=== PATIENT | male | born 1940 | race Caucasian/White ===

== ENCOUNTER 2019-02-27 18:01 | Inpatient (IN) | payer OTHER, MEDICARE ==
[~2019-02-27] VITALS: Ht 182.9 cm; Wt 98.3 kg
[~2019-02-27 18:01] MED LIST: ATOR10 PO; DILT120 PO; Hair, Skin & N1 EACH PO; MAGNESIUM OXID500 MG PO; METF500 PO; NARCAN4 MG; PANT40 PO
[2019-02-27 18:57] LABS: Source, Urine Catheter
[2019-02-27 19:02] LABS: Appearance, Urine Clear (Clear); Bilirubin, Urine Neg (Neg); Blood, Urine Neg (Neg); Color, Urine Yellow (P-Yellow); Glucose Qualitative, Urine 2+ (Neg); Ketones, Urine Neg (Neg); Leukocyte Esterase, Urine Neg (Neg); Nitrite, Urine Neg (Neg); Protein, Urine 2+ (Neg); Urobilinogen, Urine NORM (Normal)
[2019-02-27 19:25] LABS: BASOPHILS ABSOLUTE AUTO 0.01 K/mm3 (0.00-0.23); BASOPHILS PERCENT AUTO 0 % (0-2); EOSINOPHILS ABSOLUTE AUTO 0.03 K/mm3 (0.00-0.68); EOSINOPHILS PERCENT AUTO 0 % (0-6); Hematocrit 45.8 % (37.0-53.0); Hemoglobin 15.2 g/dL (13.5-17.5); IMMATURE GRAN ABSOLUTE AUTO 0.02 K/mm3 (0.00-0.10); IMMATURE GRAN PERCENT AUTO 0 % (0-1); LYMPHOCYTES ABSOLUTE AUTO 0.85 K/mm3 (0.84-5.20); LYMPHOCYTES PERCENT AUTO 11 % (21-46); MONOCYTES ABSOLUTE AUTO 0.79 K/mm3 (0.16-1.47); MONOCYTES PERCENT AUTO 11 % (4-13); Mean Corpuscular HGB 33.1 pg (26.0-34.0); Mean Corpuscular HGB Conc 33.2 g/dL (31.5-36.5); Mean Corpuscular Volume 100 fL (80-100); Mean Platelet Volume 10.8 fL (9.1-12.4); NEUTROPHILS ABSOLUTE AUTO 5.77 K/mm3 (1.96-9.15); NEUTROPHILS PERCENT AUTO 77 % (41-73); Platelet Count 195 K/mm3 (150-400); RDW Coefficient Variation 13.1 % (11.7-14.2); RDW Standard Deviation 48.6 fL (35.1-46.3); Red Blood Cell Count 4.59 M/mm3 (4.30-5.90); White Blood Cell Count 7.47 K/mm3 (4.00-11.30)
[2019-02-27 19:29] LABS: Bacteria Rare /hpf; Red Blood Cells, Urine 0-2 /hpf (0-2); Squamous Epithelial Cells Rare /hpf (Few); White Blood Cells, Urine 0-2 /hpf (0-5)
[2019-02-27 19:34] LABS: International Normalized Ratio 1.08; Prothrombin Time Results 11.4 Sec (9.7-11.5)
[2019-02-27 19:35] LABS: Alanine Aminotransfer (ALT/SGP 74 U/L (12-78); Albumin, Blood 3.5 g/dL (3.4-5.0); Albumin/Globulin Ratio 0.9 (0.8-1.8); Alk Phos 145 U/L (50-136); Anion Gap 8 mmol/L (6-16); Aspartate Aminotrans (AST/SGOT 137 U/L (12-37); Bilirubin, Total 1.8 mg/dL (0.1-1.0); Blood Urea Nitrogen 10 mg/dL (8-24); Bun/Creatinine Ratio 11.3 (12.0-20.0); CO2, Blood 25 mmol/L (21-32); Calcium, Blood 8.6 mg/dL (8.5-10.1); Chloride, Blood 103 mmol/L (98-108); Creatinine, Blood 0.88 mg/dL (0.60-1.20); Globulin, Blood 3.8 g/dL (2.2-4.0); Glomerular Filtration Rate >60 (60-); Glucose, Blood 197 mg/dL (70-99); Potassium, Blood 3.8 mmol/L (3.5-5.5); Sodium, Blood 136 mmol/L (136-145); Total Protein, Blood 7.3 g/dL (6.4-8.2)
[2019-02-27] MEDS ORDERED: FOLI1 PO (20:02)
[2019-02-27] MEDS ORDERED: B-1100 MG PO (20:02)
[2019-02-27 23:18] LABS: Influenza A Negative (NEGATIVE); Influenza B Negative (NEGATIVE)
[2019-02-28 02:23] LABS: Alanine Aminotransfer (ALT/SGP 61 U/L (12-78); Albumin/Globulin Ratio 0.9 (0.8-1.8); Alk Phos 123 U/L (50-136); Anion Gap 9 mmol/L (6-16); Aspartate Aminotrans (AST/SGOT 68 U/L (12-37); Bilirubin, Total 1.8 mg/dL (0.1-1.0); Blood Urea Nitrogen 9 mg/dL (8-24); Bun/Creatinine Ratio 9.4 (12.0-20.0); CO2, Blood 24 mmol/L (21-32); Calcium, Blood 8.1 mg/dL (8.5-10.1); Chloride, Blood 104 mmol/L (98-108); Creatinine, Blood 0.96 mg/dL (0.60-1.20); Globulin, Blood 3.5 g/dL (2.2-4.0); Glomerular Filtration Rate >60 (60-); Glucose, Blood 250 mg/dL (70-99); Potassium, Blood 3.9 mmol/L (3.5-5.5); Sodium, Blood 137 mmol/L (136-145); Total Protein, Blood 6.5 g/dL (6.4-8.2)
[2019-02-28 02:36] LABS: BASOPHILS ABSOLUTE AUTO 0.03 K/mm3 (0.00-0.23); BASOPHILS PERCENT AUTO 0 % (0-2); EOSINOPHILS PERCENT AUTO 0 % (0-6); Hematocrit 42.1 % (37.0-53.0); Hemoglobin 14.2 g/dL (13.5-17.5); IMMATURE GRAN ABSOLUTE AUTO 0.08 K/mm3 (0.00-0.10); IMMATURE GRAN PERCENT AUTO 1 % (0-1); LYMPHOCYTES ABSOLUTE AUTO 0.77 K/mm3 (0.84-5.20); LYMPHOCYTES PERCENT AUTO 7 % (21-46); MONOCYTES ABSOLUTE AUTO 1.11 K/mm3 (0.16-1.47); MONOCYTES PERCENT AUTO 11 % (4-13); Mean Corpuscular HGB 33.6 pg (26.0-34.0); Mean Corpuscular HGB Conc 33.7 g/dL (31.5-36.5); Mean Corpuscular Volume 100 fL (80-100); Mean Platelet Volume 10.8 fL (9.1-12.4); NEUTROPHILS ABSOLUTE AUTO 8.46 K/mm3 (1.96-9.15); NEUTROPHILS PERCENT AUTO 81 % (41-73); Platelet Count 165 K/mm3 (150-400); RDW Coefficient Variation 13.2 % (11.7-14.2); RDW Standard Deviation 48.4 fL (35.1-46.3); Red Blood Cell Count 4.23 M/mm3 (4.30-5.90); White Blood Cell Count 10.45 K/mm3 (4.00-11.30)
--- NOTE | 2019-02-28 05:15 | NUR ---
ED ADMIT @ [address] NAJERA FOR ELEVATED LFT'S. AOX4. BED ALARM, PT CALLED APPROPRIATELY. LS CLEAR, DENIES SOB. NO C/O NAUSEA OR PAIN. NO SKIN ISSUES. TELE READS SINUS TACH AFIB 120-130. PT WAS GIVEN CARDIZEM AND HR HAS BEEN TRENDING DOWN, LAST @ 0445 WAS 61. HIGHEST TEMP WAS 101.2, TYLENOL GIVEN @ 0240 AND TEMP BACK TO 98.0. PT RECEIVED 2L LR BOLUS IN ED, RECEIVED ANOTHER 1L BOLUS OF NS AFTER SECOND LACTIC CAME BACK HIGHER AT 3.2. NS NOW RUNNING @ 200ML/HR. BP CONTINUES TO DECREASE. 120/71, 100/57, 94/61, AND LAST @ 0445 WAS 90/56. DR BACON IS AWARE OF ALL OF THIS AND HAS BEEN NOTIFIED SEVERAL TIMES OF LABS AND VS. DR BACON WANTS TO KEEP FLUIDS GOING AT 200ML/HR AT THIS TIME AND WAIT FOR NEXT LACTIC DRAW @ 0600. PT HAD CT SCAN DONE AROUND 0430. ASYMPTOMATIC, LS REMAIN CLEAR, NO COMPLAINTS FROM PT. HX OF ETOH, AFIB, DM2 AND HTN. LATEST LACTIC WAS 3.3, WAITING FOR 6AM RESULT. BLOOD GLUCOSE CHECKS AC AND HS - 201. PT CONTROLS DIABETES W/ORAL MEDS. METFORMIN ON HOLD FOR NOW D/T LACTIC. PT STAYED THE NIGHT IN ROOM. FROM ID. UNSURE OF PLAN AT THIS TIME. WAITING FOR MORE RESULTS.
--- NOTE | 2019-02-28 06:30 | NUR ---
DR BACON NOTIFIED ABOUT PT LATEST LACTIC ACID OF 3.3. HE SAID TO KEEP FLUIDS RUNNING NS @ 200ML/HR. QUESTIONED IF HE WANTED SOMETHING TO PROTECT THE KIDNEYS SINCE PT RECEIVED CONTRAST FOR CT SCAN LIKE MUCOMYST AND HE SAID NO, TO JUST KEEP FLUIDS GOING.
--- NOTE | 2019-02-28 16:46 | NUR ---
SUMMARY PT STATE FEELING SOMEWHAT IMPROVED THIS AM FOLLOWING ER TX & FLUID BOLUSES DURING THE NIGHT. STATE SOMEWHAT FATIGUED. NO FEVER TODAY. LAST LACTIC ACID THIS AM 3.3, DR ORTIZ ORDER LR BOLUS 1L TODAY & CHANGE IVF TO LR @ 75 ML/HR. LAB REPORT +BLOOD CX, ORDER IVPB AZITHROMYCIN. LFT ELEVATED, DR ORDER MRI ABD WHICH WILL BE DONE THIS EVENING. PT IS A/O X4, PLEASANT/COOPERATIVE, SBA TO BR, +BM TODAY. VSS. PT S/O @ BEDSIDE, SUPPORTIVE, WILL STAY NITE W PT.
--- NOTE | 2019-03-01 03:27 | NUR ---
SHIFT SUMMARY AOX4. PT VERY DROWSY AFTER RECEIVING ATIVAN BEFORE MRI. BED ALARM. LS CLEAR, DENIES SOB. NO C/O NAUSEA OR PAIN. NO SKIN PROBLEMS. TELE READS AFIB IN THE 90'S. L WRIST IV IS SL. L AC HAS LR @ 75. AC AND HS - 166. METFORMIN ON HOLD. UA DIRTY. BLOOD CULTURES POSITIVE. UNSURE OF DC PLAN, FROM [facility].
[2019-03-01 04:28] LABS: BASOPHILS ABSOLUTE AUTO 0.03 K/mm3 (0.00-0.23); BASOPHILS PERCENT AUTO 0 % (0-2); EOSINOPHILS ABSOLUTE AUTO 0.08 K/mm3 (0.00-0.68); EOSINOPHILS PERCENT AUTO 1 % (0-6); Hematocrit 44.6 % (37.0-53.0); Hemoglobin 14.9 g/dL (13.5-17.5); IMMATURE GRAN ABSOLUTE AUTO 0.03 K/mm3 (0.00-0.10); IMMATURE GRAN PERCENT AUTO 0 % (0-1); LYMPHOCYTES ABSOLUTE AUTO 1.45 K/mm3 (0.84-5.20); LYMPHOCYTES PERCENT AUTO 18 % (21-46); MONOCYTES ABSOLUTE AUTO 0.84 K/mm3 (0.16-1.47); MONOCYTES PERCENT AUTO 10 % (4-13); Mean Corpuscular HGB 33.3 pg (26.0-34.0); Mean Corpuscular HGB Conc 33.4 g/dL (31.5-36.5); Mean Corpuscular Volume 100 fL (80-100); Mean Platelet Volume 10.2 fL (9.1-12.4); NEUTROPHILS ABSOLUTE AUTO 5.73 K/mm3 (1.96-9.15); NEUTROPHILS PERCENT AUTO 70 % (41-73); Platelet Count 180 K/mm3 (150-400); RDW Coefficient Variation 13.3 % (11.7-14.2); RDW Standard Deviation 49.5 fL (35.1-46.3); Red Blood Cell Count 4.47 M/mm3 (4.30-5.90); White Blood Cell Count 8.16 K/mm3 (4.00-11.30)
[2019-03-01 04:45] LABS: Alanine Aminotransfer (ALT/SGP 44 U/L (12-78); Albumin, Blood 3.1 g/dL (3.4-5.0); Albumin/Globulin Ratio 0.8 (0.8-1.8); Alk Phos 104 U/L (50-136); Anion Gap 8 mmol/L (6-16); Aspartate Aminotrans (AST/SGOT 33 U/L (12-37); Bilirubin, Total 2.2 mg/dL (0.1-1.0); Blood Urea Nitrogen 12 mg/dL (8-24); Bun/Creatinine Ratio 12.9 (12.0-20.0); CO2, Blood 21 mmol/L (21-32); Calcium, Blood 8.4 mg/dL (8.5-10.1); Chloride, Blood 108 mmol/L (98-108); Creatinine, Blood 0.93 mg/dL (0.60-1.20); Globulin, Blood 3.8 g/dL (2.2-4.0); Glomerular Filtration Rate >60 (60-); Glucose, Blood 143 mg/dL (70-99); Potassium, Blood 3.9 mmol/L (3.5-5.5); Sodium, Blood 137 mmol/L (136-145); Total Protein, Blood 6.9 g/dL (6.4-8.2)
[2019-03-01] MEDS ORDERED: METO25ER PO (14:54)
[2019-03-01] MEDS ORDERED: AMOCLA500 PO (14:55)
--- NOTE | 2019-03-01 16:16 | NUR ---
1520 PT DISCHARGED VIA PERSONAL VEHICLE ACCOMPANIED AND DRIVEN BY SIGNIFICANT OTHER. PT REFUSED W/C ESCORT AND REQUESTED TO WALK WITH FRIEND. IV'S REMOVED. NEW RX FAXED TO [facility] PER PT REQUEST. D/C PAPERWORK REVIEWED WITH PT AND COPY PROVIDED. NO NEW CHANGES OR CONCERNS.
== END 2019-03-01 15:21 | disposition home or self-care (01) | DRG 872 ==
LOC: ER 18:01 → MEDS 18:02 → ENPENDDIS 03-01 13:18 → MEDS 03-01 15:21
PROVIDERS: Emergency Medicine; Internal Medicine; ADMIT Internal Medicine
DX: A41.50 Gram-negative sepsis, unspecified (principal); E87.2 Acidosis; I48.20 Chronic atrial fibrillation, unspecified; Z87.891 Personal history of nicotine dependence; Z79.84 Long term (current) use of oral hypoglycemic drugs; I10 Essential (primary) hypertension; E66.01 Morbid (severe) obesity due to excess calories; K70.30 Alcoholic cirrhosis of liver without ascites; Z68.28 Body mass index [BMI] 28.0-28.9, adult; E11.9 Type 2 diabetes mellitus without complications; K83.8 Other specified diseases of biliary tract
CPT/HCPCS: 36415; 71046; 74177; 74181; 80053; 81001; 82947; 83036; 83605; 84145; 84443; 85025; 85610; 85730; 87040; 87077; 87086; 87186; 87804; 93005; 93010; 96361; 96365; 96375; 99285-25; A9270; G0378; J0456; J0696; J1815; J2060; J7030; J7050; J7120; Q9967

== ENCOUNTER 2019-08-05 17:34 | Emergency (ER) | payer OTHER ==
[~2019-08-05] VITALS: Ht 182.9 cm; Wt 93.0 kg
[~2019-08-05 17:34] MED LIST changes: +AMOCLA500 PO; +B-1100 MG PO; +FOLI1 PO; +METO25ER PO
[2019-08-05 18:05] LABS: BASOPHILS ABSOLUTE AUTO 0.04 K/mm3 (0.00-0.23); BASOPHILS PERCENT AUTO 1 % (0-2); EOSINOPHILS ABSOLUTE AUTO 0.03 K/mm3 (0.00-0.68); EOSINOPHILS PERCENT AUTO 1 % (0-6); Hematocrit 46.4 % (37.0-53.0); Hemoglobin 16.2 g/dL (13.5-17.5); IMMATURE GRAN ABSOLUTE AUTO 0.03 K/mm3 (0.00-0.10); IMMATURE GRAN PERCENT AUTO 1 % (0-1); LYMPHOCYTES ABSOLUTE AUTO 4.07 K/mm3 (0.84-5.20); LYMPHOCYTES PERCENT AUTO 68 % (21-46); MONOCYTES ABSOLUTE AUTO 0.48 K/mm3 (0.16-1.47); MONOCYTES PERCENT AUTO 8 % (4-13); Mean Corpuscular HGB 31.8 pg (26.0-34.0); Mean Corpuscular HGB Conc 34.9 g/dL (31.5-36.5); Mean Corpuscular Volume 91 fL (80-100); NEUTROPHILS ABSOLUTE AUTO 1.38 K/mm3 (1.96-9.15); NEUTROPHILS PERCENT AUTO 23 % (41-73); Platelet Count 164 K/mm3 (150-400); RDW Coefficient Variation 15.7 % (11.7-14.2); RDW Standard Deviation 52.7 fL (35.1-46.3); Red Blood Cell Count 5.09 M/mm3 (4.30-5.90); White Blood Cell Count 6.03 K/mm3 (4.00-11.30)
[2019-08-05 18:26] LABS: Magnesium, Blood 1.2 mg/dL (1.6-2.4); Troponin I <0.015 ng/mL (0.000-0.040)
[2019-08-05 18:27] LABS: Alanine Aminotransfer (ALT/SGP 20 U/L (12-78); Albumin, Blood 3.2 g/dL (3.4-5.0); Albumin/Globulin Ratio 0.8 (0.8-1.8); Alk Phos 96 U/L (50-136); Anion Gap 13 mmol/L (6-16); Aspartate Aminotrans (AST/SGOT 51 U/L (12-37); Bilirubin, Total 1.6 mg/dL (0.1-1.0); Blood Urea Nitrogen 9 mg/dL (8-24); Bun/Creatinine Ratio 10.8 (12.0-20.0); CO2, Blood 26 mmol/L (21-32); Calcium, Blood 7.7 mg/dL (8.5-10.1); Chloride, Blood 101 mmol/L (98-108); Creatinine, Blood 0.83 mg/dL (0.60-1.20); Globulin, Blood 3.9 g/dL (2.2-4.0); Glomerular Filtration Rate >60 (60-); Glucose, Blood 177 mg/dL (70-99); Sodium, Blood 140 mmol/L (136-145); Total Protein, Blood 7.1 g/dL (6.4-8.2)
== END 2019-08-05 19:45 | disposition home or self-care (01) ==
LOC: ER 17:34
PROVIDERS: Emergency Medicine
DX: R07.89 Other chest pain (principal); I48.20 Chronic atrial fibrillation, unspecified; E87.6 Hypokalemia; E83.42 Hypomagnesemia; I10 Essential (primary) hypertension; E11.9 Type 2 diabetes mellitus without complications; F32.9 Major depressive disorder, single episode, unspecified; Z88.2 Allergy status to sulfonamides; Z79.899 Other long term (current) drug therapy; Z79.84 Long term (current) use of oral hypoglycemic drugs
CPT/HCPCS: 71045; 80053; 83735; 84484; 85025; 93005; 93010; 93971; 99285-25; A9270

== ENCOUNTER 2019-09-12 21:36 | Inpatient (IN) | payer OTHER ==
[~2019-09-12] VITALS: Ht 185.4 cm; Wt 93.4 kg
[2019-09-12 22:19] LABS: BASOPHILS ABSOLUTE AUTO 0.04 K/mm3 (0.00-0.23); BASOPHILS PERCENT AUTO 1 % (0-2); EOSINOPHILS ABSOLUTE AUTO 0.04 K/mm3 (0.00-0.68); EOSINOPHILS PERCENT AUTO 1 % (0-6); Hematocrit 38.8 % (37.0-53.0); IMMATURE GRAN ABSOLUTE AUTO 0.02 K/mm3 (0.00-0.10); IMMATURE GRAN PERCENT AUTO 0 % (0-1); LYMPHOCYTES ABSOLUTE AUTO 3.73 K/mm3 (0.84-5.20); LYMPHOCYTES PERCENT AUTO 64 % (21-46); MONOCYTES PERCENT AUTO 9 % (4-13); Mean Corpuscular HGB Conc 36.1 g/dL (31.5-36.5); Mean Corpuscular Volume 89 fL (80-100); Mean Platelet Volume 10.3 fL (9.1-12.4); NEUTROPHILS ABSOLUTE AUTO 1.49 K/mm3 (1.96-9.15); NEUTROPHILS PERCENT AUTO 26 % (41-73); Platelet Count 195 K/mm3 (150-400); RDW Coefficient Variation 14.2 % (11.7-14.2); RDW Standard Deviation 46.1 fL (35.1-46.3); Red Blood Cell Count 4.38 M/mm3 (4.30-5.90); White Blood Cell Count 5.82 K/mm3 (4.00-11.30)
[2019-09-12 22:40] LABS: Alanine Aminotransfer (ALT/SGP 29 U/L (12-78); Albumin, Blood 2.9 g/dL (3.4-5.0); Albumin/Globulin Ratio 0.7 (0.8-1.8); Alk Phos 151 U/L (50-136); Anion Gap 13 mmol/L (6-16); Aspartate Aminotrans (AST/SGOT 47 U/L (12-37); Bilirubin, Total 2.3 mg/dL (0.1-1.0); Blood Urea Nitrogen 14 mg/dL (8-24); Bun/Creatinine Ratio 16.1 (12.0-20.0); CO2, Blood 30 mmol/L (21-32); Calcium, Blood 6.8 mg/dL (8.5-10.1); Chloride, Blood 92 mmol/L (98-108); Creatinine, Blood 0.87 mg/dL (0.60-1.20); Glomerular Filtration Rate >60 (60-); Glucose, Blood 152 mg/dL (70-99); Potassium, Blood 2.2 mmol/L (3.5-5.5); Sodium, Blood 135 mmol/L (136-145); Total Protein, Blood 6.9 g/dL (6.4-8.2)
[2019-09-12 22:43] LABS: Troponin I <0.015 ng/mL (0.000-0.040)
--- NOTE | 2019-09-13 01:20 | NUR ---
PT ARRIVES TO ICU 16 PCU OBS PT FROM ER FOR DX OF HYPOKALEMIA. HE IS ALERT AND ORIENTED AT THIS TIME, CIWA IS 0. HE STANDS TO TRANSFER WITH MINIMAL ASSIST AND STEADY GAIT, DENIES DIZZINESS/VERTIGO WITH TRANSFER. PT IS SPEAKING IN FULL SENTENCES WITHOUT VISIBLE INCREASED WORK OF BREATHING, HE DENIES SOB/DYSPNEA, LUNGS ARE CLEAR THROUGHOUT, SATS ARE UPPER 90S ON ROOM AIR, RATE HIGH TEENS. HR IRREG, AFIB NOTED ON MONITOR, RATE CONTROLLED AT THIS TIME, PT DENIES CP/PRESSURE, PRESSURES ARE IMPROVING PER PAIN MANAGEMENT NURSE PRACTITIONER, SKIN IS PWD WITH FULL PULSES X 4 EXTREMITIES AND BRISK CAP REFILL, NO EDEMA IS NOTED. NORMOACTIVE BOWEL TONES X 4, ABD SOFT, NO TENDERNESS REPORTED WITH PALPATION, PT DENIES N/V. HE STATES THAT HE LIVES AT [facility]. HE REPORTS THAT HE DRINKS VODKA "ONCE IN A WHILE" AND THAT HIS LAST DRINK WAS 2 DAYS AGO. HE DENIES HEADACHE, DENIES NUMBNESS/TINGLING, DENIES ANXIETY. NS WITH 40 MEQ OF POTASSIUM INFUSING AT 250 ML/HR PER ORDERS TO LEFT HAND IV, SITE WNL, DRESSING CDI. ADDITIONAL IV ACCESS NOTED TO RIGHT HAND AND RIGHT AC, BOTH WNL WITH CDI DRESSINGS. CALL LIGHT PROVIDED, USE EXPLAINED AND ENCOURAGED, FALL RISK EXPLAINED, BED ALARM ARMED AND PT INSTRUCTED TO NOT GET UP OOB INDEPENDENTLY. PLAN OF CARE FOR THIS SHIFT EXPLAINED, UNDERSTANDING VERB.
[2019-09-13 02:54] LABS: Source, Urine Clean Catch
[2019-09-13 02:59] LABS: Appearance, Urine Clear (Clear); Bilirubin, Urine Neg (Neg); Blood, Urine Neg (Neg); Color, Urine Yellow (P-Yellow); Glucose Qualitative, Urine Neg (Neg); Ketones, Urine Neg (Neg); Leukocyte Esterase, Urine Neg (Neg); Nitrite, Urine Neg (Neg); Protein, Urine Neg (Neg); Specific Gravity, Urine 1.005 (1.003-1.022); Urobilinogen, Urine 1+ (Normal)
[2019-09-13 03:52] LABS: BASOPHILS ABSOLUTE AUTO 0.04 K/mm3 (0.00-0.23); BASOPHILS PERCENT AUTO 1 % (0-2); EOSINOPHILS ABSOLUTE AUTO 0.04 K/mm3 (0.00-0.68); EOSINOPHILS PERCENT AUTO 1 % (0-6); Hematocrit 36.1 % (37.0-53.0); Hemoglobin 13.1 g/dL (13.5-17.5); IMMATURE GRAN ABSOLUTE AUTO 0.04 K/mm3 (0.00-0.10); IMMATURE GRAN PERCENT AUTO 1 % (0-1); LYMPHOCYTES ABSOLUTE AUTO 2.48 K/mm3 (0.84-5.20); LYMPHOCYTES PERCENT AUTO 62 % (21-46); MONOCYTES ABSOLUTE AUTO 0.39 K/mm3 (0.16-1.47); MONOCYTES PERCENT AUTO 10 % (4-13); Mean Corpuscular HGB 32.8 pg (26.0-34.0); Mean Corpuscular HGB Conc 36.3 g/dL (31.5-36.5); Mean Corpuscular Volume 90 fL (80-100); Mean Platelet Volume 9.9 fL (9.1-12.4); NEUTROPHILS ABSOLUTE AUTO 1.04 K/mm3 (1.96-9.15); NEUTROPHILS PERCENT AUTO 26 % (41-73); Platelet Count 179 K/mm3 (150-400); RDW Coefficient Variation 14.4 % (11.7-14.2); RDW Standard Deviation 47.8 fL (35.1-46.3); White Blood Cell Count 4.03 K/mm3 (4.00-11.30)
[2019-09-13 04:05] LABS: International Normalized Ratio 1.12; Prothrombin Time Results 11.9 Sec (9.7-11.5)
[2019-09-13 04:17] LABS: Alanine Aminotransfer (ALT/SGP 24 U/L (12-78); Albumin, Blood 2.7 g/dL (3.4-5.0); Albumin/Globulin Ratio 0.8 (0.8-1.8); Alk Phos 133 U/L (50-136); Anion Gap 11 mmol/L (6-16); Aspartate Aminotrans (AST/SGOT 44 U/L (12-37); Bilirubin, Total 2.2 mg/dL (0.1-1.0); Blood Urea Nitrogen 12 mg/dL (8-24); Bun/Creatinine Ratio 13.8 (12.0-20.0); CO2, Blood 31 mmol/L (21-32); Calcium, Blood 6.8 mg/dL (8.5-10.1); Chloride, Blood 99 mmol/L (98-108); Creatinine, Blood 0.87 mg/dL (0.60-1.20); Globulin, Blood 3.4 g/dL (2.2-4.0); Glomerular Filtration Rate >60 (60-); Glucose, Blood 128 mg/dL (70-99); Potassium, Blood 2.1 mmol/L (3.5-5.5); Sodium, Blood 141 mmol/L (136-145); Total Protein, Blood 6.1 g/dL (6.4-8.2)
--- NOTE | 2019-09-13 06:01 | NUR ---
PT RESTS QUIETLY FOLLOWING ADMIT FROM ER. PT HAS DENIED PAIN, N/V, SOB/DYSPNEA AND CP/PRESSURE SINCE ADMIT, STATES THAT HE IS JUST TIRED AND CAN'T REMEMBER THE LAST TIME HE STAYED UP THIS LATE. HE DOES REMAIN IN AFIB WITH CONTROLLED RATE, OCCASIONAL PVCS ARE NOTED, BLOOD PRESSURES HAVE BEEN STABLE, NO EDEMA IS NOTED, AND PULSES ARE FULL, SKIN IS PWD WITH BRISK CAP REFILL. LUNGS ARE CLEAR THROUGHOUT WITH DIM BASES, NO VISIBLE INCREASED WORK OF BREATHING, HE HAS BEEN SPEAKING IN FULL SENTENCES, SATS MAINTAIN MID TO UPPER 90S ON ROOM AIR. NORMOACTIVE BOWEL TONES CONT, ABD SOFT, NONTENDER TO PALP. VOIDS CLEAR DARK YELLOW URINE WITHOUT DIFFICULTY AND UA WAS SENT PER ORDERS. NORMAL SALINE WITH POTASSIUM CHLORIDE 40 MEQ/LITER CONTINUES INFUSING AT 250 ML/HR, PT'S POTASSIUM REMAINS CRITICALLY LOW HOWEVER HAS IMPROVED TO 2.4 OF THIS AM, WILL ADMINISTER PO POTASSIUM PER ORDERS AND RECHECK LEVEL 4 HOURS AFTER ADMINISTRATION.
--- NOTE | 2019-09-13 09:22 | NUR ---
PT IS RESTING IN BED W/O DISTRESS. DENIES PAIN OR SOB. REMAINS AFIB. TAKING PO WELL. CIWA-2 CURRENTLY AND PT IS A/O WITH ONLY SL NOTED TREMORS. PT ALSO DENIES ANY HX OF D.T. ISSUES.
[2019-09-13 10:45] LABS: International Normalized Ratio 1.07; Prothrombin Time Results 11.4 Sec (9.7-11.5)
[2019-09-13 10:54] LABS: Magnesium, Blood 1.3 mg/dL (1.6-2.4); Phosphorus, Blood 2.4 mg/dL (2.5-4.9); Potassium, Blood 2.9 mmol/L (3.5-5.5)
[2019-09-13 16:38] LABS: Magnesium, Blood 1.9 mg/dL (1.6-2.4); Potassium, Blood 3.8 mmol/L (3.5-5.5)
--- NOTE | 2019-09-13 17:30 | NUR ---
PT CIWA REMAINS LOW NOTED AND PT HAS RESTED WELL THIS SHIFT. HR REMAINS SOMEWHAT ELEVATED RUNNING 100 TO 115 OR 120 AT TIMES BUT OVERALL HR SLOWING WITH MEDS. PT HAS BEEN UP AND FEEDING SELF ALL SHIFT. I/O NOTED. PT HAS BEEN VOIDING AND ONE BM THIS SHIFT. PT HAS BEEN RESTING AND WATCHING TV MOST OF THIS SHIFT.
--- NOTE | 2019-09-13 19:25 | NUR ---
ASSUMED CARE OF PT, BEDSIDE REPORT RECEIVED. PT RESTING QUIETLY RECLINING IN BED AND DENIES NEEDS AT THIS TIME. DENIES CP/PRESSURE, DENIES SOB/DYSPNEA, DENIES NUMBNESS/TINGLING, DENIES N/V, DENIES PAIN OVERALL. HE IS SPEAKING IN FULL SENTENCES WITHOUT VISIBLE INCREASED WORK OF BREATHING, LUNGS ARE CLEAR THROUGHOUT AND SATS MAINTAINING HIGH 90S ON ROOM AIR. AFIB CONTINUES, RATE 100-110S AT THIS TIME, WILL ADMIN HS TOPROL PER ORDERS AND MONITOR, PRESSURE IS NOTED HYPERTENSIVE, SKIN PWD, BRISK CAP REFILL, NO EDEMA IS NOTED. NORMOACTIVE BOWEL TONES X 4, ABD SOFT, NO TENDERNESS WITH PALPATION. VOIDS CLEAR DARK YELLOW URINE IN URINAL WITHOUT DIFFICULTY. PT REPORTS THAT ALTHOUGH HE DOES STILL FEEL WEAK COMPARED TO BASELINE, THAT HIS STRENGTH HAS IMPROVED FROM ARRIVAL AT ER.
[2019-09-14 03:43] LABS: Anion Gap 5 mmol/L (6-16); Blood Urea Nitrogen 14 mg/dL (8-24); Bun/Creatinine Ratio 18.7 (12.0-20.0); CO2, Blood 31 mmol/L (21-32); Calcium, Blood 6.7 mg/dL (8.5-10.1); Chloride, Blood 102 mmol/L (98-108); Creatinine, Blood 0.75 mg/dL (0.60-1.20); Glomerular Filtration Rate >60 (60-); Glucose, Blood 175 mg/dL (70-99); Magnesium, Blood 1.6 mg/dL (1.6-2.4); Sodium, Blood 138 mmol/L (136-145)
--- NOTE | 2019-09-14 06:25 | NUR ---
PT RESTS QUIETLY THROUGHOUT SHIFT, TURNS AND REPOSITIONS SELF WELL IN BED, UP TO STAND FOR VOIDS IN URINAL WITH SBA AND TOLERATES WELL, DOES REPORT THAT STRENGTH HAS IMPROVED ALTHOUGH HE REMAINS WEAK COMPARED TO BASELINE. LUNGS REMAIN CLEAR THROUGHOUT, PT HAS DENIED SOB/DYSPNEA THROUGHOUT SHIFT ALTHOUGH DID APPEAR TO HAVE SLIGHT DYSPNEA WITH EXERTION AT MIDNOC ASSESSMENT, THIS WAS NO LONGER APPARENT AT 0400. AFIB CONTINUES, SCHEDULED TOPROL ADMIN AT HS PER ORDERS AND PRN LOPRESSOR ADMIN PO AT MIDNOC FOR HEART RATE CONSISTENTLY 120S, RATE IS IMPROVED THIS AM TO 80-90S AT THIS TIME, PRESSURES HAVE IMPROVED.
--- NOTE | 2019-09-14 09:18 | NUR ---
PT IS A/O AND 1-2 ON CIWA. PT IS CALM AND ONLY VERY SLIGHT TREMORS FOR SYMPTOMS. PT IS EATING WELL, UP TO VOID AND HAS HAD NO N/V. PT HAS WORKED WITH PT AND HIS BALANCE IS IMPORVED TODAY. IV SITES ARE ALL S.L. VS AND HR ARE NOTED AND PT HR CONTROL IS IMPORVED TODAY FROM YESTERDAY.
--- NOTE | 2019-09-14 12:05 | NUR ---
PT DISCHARGE INSTRUCTIONS GIVEN AND PT VERBALIZED UNDERSTANDING. NO RX CALLS NEEDED PT HAS MEDS AVALIBLE AT HOME. IV'S REMOVED X3 INTACT, PT HR 90-105. PT TAXI ARRANGED TO [facility] DUE TO NO OTHER RIDE OR CONTACT BEING AVALIBLE. PT D/C TO FRONT CURB TO NANCY TAXI VIA W/C WITH TOOL AND DIE ASSEMBLER.
== END 2019-09-14 12:10 | disposition home or self-care (01) | DRG 641 ==
LOC: ER 21:36 → ICUW 21:37
PROVIDERS: Emergency Medicine; Internal Medicine; Nurse Practitioner Acute Care; ADMIT Family Medicine
DX: E87.6 Hypokalemia (principal); Z79.84 Long term (current) use of oral hypoglycemic drugs; E11.9 Type 2 diabetes mellitus without complications; Z87.891 Personal history of nicotine dependence; E83.51 Hypocalcemia; E83.42 Hypomagnesemia; K70.30 Alcoholic cirrhosis of liver without ascites; I48.91 Unspecified atrial fibrillation; Y90.8 Blood alcohol level of 240 mg/100 ml or more; F10.120 Alcohol abuse with intoxication, uncomplicated
CPT/HCPCS: 36415; 70450; 71045; 80048; 80053; 81003; 82140; 82306; 82330; 82947; 83735; 84100; 84132; 84443; 84484; 85025; 85610; 93005; 93010; 96365; 96366; 96375; 96376; 97110; 97112; 97162; 97165; 97530; 99285-25; A9270; A9270-GY; C9113; G0378; G0480; J0610; J3475; J3480; J7030

== ENCOUNTER 2020-08-27 10:22 | Observation (INO) | payer OTHER ==
[~2020-08-27] VITALS: Ht 177.8 cm; Wt 74.8 kg
[~2020-08-27 10:22] MED LIST changes: +K-Dur 20 meq T20 MEQ PO; +MAGNESIUM OXID400 M1 PO
[2020-08-27 11:11] LABS: BASOPHILS ABSOLUTE AUTO 0.04 K/mm3 (0.00-0.23); BASOPHILS PERCENT AUTO 1 % (0-2); EOSINOPHILS ABSOLUTE AUTO 0.05 K/mm3 (0.00-0.68); EOSINOPHILS PERCENT AUTO 1 % (0-6); Hematocrit 43.6 % (37.0-53.0); IMMATURE GRAN ABSOLUTE AUTO 0.03 K/mm3 (0.00-0.10); IMMATURE GRAN PERCENT AUTO 1 % (0-1); LYMPHOCYTES ABSOLUTE AUTO 2.83 K/mm3 (0.84-5.20); LYMPHOCYTES PERCENT AUTO 45 % (21-46); MONOCYTES ABSOLUTE AUTO 0.59 K/mm3 (0.16-1.47); MONOCYTES PERCENT AUTO 9 % (4-13); Mean Corpuscular HGB 34.1 pg (26.0-34.0); Mean Corpuscular HGB Conc 36.7 g/dL (31.5-36.5); Mean Corpuscular Volume 93 fL (80-100); NEUTROPHILS ABSOLUTE AUTO 2.76 K/mm3 (1.96-9.15); NEUTROPHILS PERCENT AUTO 44 % (41-73); Platelet Count 172 K/mm3 (150-400); RDW Coefficient Variation 13.2 % (11.7-14.2); RDW Standard Deviation 44.8 fL (35.1-46.3); Red Blood Cell Count 4.69 M/mm3 (4.30-5.90)
[2020-08-27 11:36] LABS: Alanine Aminotransfer (ALT/SGP 26 U/L (12-78); Albumin, Blood 3.2 g/dL (3.4-5.0); Albumin/Globulin Ratio 0.8 (0.8-1.8); Alk Phos 100 U/L (50-136); Anion Gap 11 mmol/L (6-16); Aspartate Aminotrans (AST/SGOT 41 U/L (12-37); Bilirubin, Total 2.3 mg/dL (0.1-1.0); Blood Urea Nitrogen 6 mg/dL (8-24); Bun/Creatinine Ratio 6.9 (12.0-20.0); CO2, Blood 29 mmol/L (21-32); Calcium, Blood 7.9 mg/dL (8.5-10.1); Chloride, Blood 88 mmol/L (98-108); Creatinine, Blood 0.87 mg/dL (0.60-1.20); Globulin, Blood 3.9 g/dL (2.2-4.0); Glomerular Filtration Rate >60 (60-); Glucose, Blood 218 mg/dL (70-99); Potassium, Blood 2.9 mmol/L (3.5-5.5); Sodium, Blood 128 mmol/L (136-145); Total Protein, Blood 7.1 g/dL (6.4-8.2)
[2020-08-27 11:45] LABS: Ethanol (Alcohol), Blood, Med 238 mg/dL; Thyroxine (T4) 10.9 ug/dL (4.5-12.1)
[2020-08-27 11:53] LABS: Acetaminophen, Random <2.0 ug/mL (10.0-30.0); Salicylate <1.7 mg/dL (2.8-20.0)
[2020-08-27 13:05] LABS: SARS-Cov-2 (COVID-19) PCR, MMC NEGATIVE (NEGATIVE)
[2020-08-27 14:53] LABS: Source, Urine Clean Catch
[2020-08-27 15:19] LABS: Appearance, Urine Clear (Clear); Bilirubin, Urine Neg (Neg); Blood, Urine Neg (Neg); Color, Urine Amber (P-Yellow); Glucose Qualitative, Urine 2+ (Neg); Ketones, Urine Neg (Neg); Leukocyte Esterase, Urine Neg (Neg); Nitrite, Urine Neg (Neg); Protein, Urine Neg (Neg); Specific Gravity, Urine 1.005 (1.003-1.022); Urobilinogen, Urine 2+ (Normal)
[2020-08-27 15:35] LABS: U Amphetamine Screen Not Detected; U Barbituate Screen Not Detected; U Benzodiazapine Screen Not Detected; U Buprenorphine Screen Not Detected; U Cannabinoids Screen Not Detected; U Cocaine Screen Not Detected; U Methadone Screen Not Detected; U Methamphetamine Screen Not Detected; U Opiates Screen Not Detected; U Oxycodone Screen Not Detected; U Phencyclidine Screen Not Detected
[2020-08-27 15:36] LABS: U Propoxyphene Screen Not Detected
[2020-08-28 10:18] LABS: Alanine Aminotransfer (ALT/SGP 24 U/L (12-78); Albumin, Blood 3.1 g/dL (3.4-5.0); Albumin/Globulin Ratio 0.8 (0.8-1.8); Alk Phos 91 U/L (50-136); Anion Gap 8 mmol/L (6-16); Aspartate Aminotrans (AST/SGOT 50 U/L (12-37); Bilirubin, Total 3.8 mg/dL (0.1-1.0); Blood Urea Nitrogen 10 mg/dL (8-24); Bun/Creatinine Ratio 10.6 (12.0-20.0); CO2, Blood 29 mmol/L (21-32); Calcium, Blood 8.4 mg/dL (8.5-10.1); Chloride, Blood 97 mmol/L (98-108); Creatinine, Blood 0.94 mg/dL (0.60-1.20); Globulin, Blood 3.7 g/dL (2.2-4.0); Glomerular Filtration Rate >60 (60-); Glucose, Blood 228 mg/dL (70-99); Magnesium, Blood 1.2 mg/dL (1.6-2.4); Potassium, Blood 4.2 mmol/L (3.5-5.5); Sodium, Blood 134 mmol/L (136-145); Total Protein, Blood 6.8 g/dL (6.4-8.2)
[2020-08-28] MEDS ORDERED: MAGNESIUM OXID500 MG PO (11:42)
== END 2020-08-28 12:44 | disposition home or self-care (01) ==
LOC: ER 10:22 → EOR 10:23
PROVIDERS: Emergency Medicine; ADMIT Emergency Medicine
DX: F32.9 Major depressive disorder, single episode, unspecified (principal); F10.229 Alcohol dependence with intoxication, unspecified; I10 Essential (primary) hypertension; I48.91 Unspecified atrial fibrillation; E11.9 Type 2 diabetes mellitus without complications; Z20.822 Contact with and (suspected) exposure to COVID-19; K70.30 Alcoholic cirrhosis of liver without ascites; E87.6 Hypokalemia; E83.42 Hypomagnesemia; Z79.84 Long term (current) use of oral hypoglycemic drugs
CPT/HCPCS: 36415; 80053; 81003; 83735; 84436; 84443; 85025; 93005; 93010; 99285-25; A9270; G0378; G0480; U0004

== ENCOUNTER 2021-08-10 15:49 | Emergency (ER) | payer OTHER ==
[~2021-08-10] VITALS: Ht 182.9 cm; Wt 93.0 kg
[2021-08-10 16:50] LABS: Source, Urine Clean Catch
[2021-08-10 16:56] LABS: Bilirubin, Urine Neg (Neg); Blood, Urine Neg (Neg); Glucose Qualitative, Urine 4+ (Neg); Ketones, Urine Neg (Neg); Leukocyte Esterase, Urine Neg (Neg); Nitrite, Urine Neg (Neg); Protein, Urine Neg (Neg); Urobilinogen, Urine NORM (Normal)
[2021-08-10 16:57] LABS: BASOPHILS ABSOLUTE AUTO 0.02 K/mm3 (0.00-0.23); BASOPHILS PERCENT AUTO 0 % (0-2); EOSINOPHILS ABSOLUTE AUTO 0.02 K/mm3 (0.00-0.68); EOSINOPHILS PERCENT AUTO 0 % (0-6); Hematocrit 43.3 % (37.0-53.0); Hemoglobin 15.3 g/dL (13.5-17.5); IMMATURE GRAN ABSOLUTE AUTO 0.04 K/mm3 (0.00-0.10); IMMATURE GRAN PERCENT AUTO 1 % (0-1); LYMPHOCYTES ABSOLUTE AUTO 1.62 K/mm3 (0.84-5.20); LYMPHOCYTES PERCENT AUTO 25 % (21-46); MONOCYTES ABSOLUTE AUTO 0.85 K/mm3 (0.16-1.47); MONOCYTES PERCENT AUTO 13 % (4-13); Mean Corpuscular HGB 30.4 pg (26.0-34.0); Mean Corpuscular HGB Conc 35.3 g/dL (31.5-36.5); Mean Corpuscular Volume 86 fL (80-100); Mean Platelet Volume 9.8 fL (9.1-12.4); NEUTROPHILS ABSOLUTE AUTO 3.95 K/mm3 (1.96-9.15); NEUTROPHILS PERCENT AUTO 61 % (41-73); Platelet Count 115 K/mm3 (150-400); RDW Standard Deviation 42.5 fL (35.1-46.3); Red Blood Cell Count 5.04 M/mm3 (4.30-5.90)
[2021-08-10 17:02] LABS: Appearance, Urine Clear (Clear); Color, Urine Yellow (P-Yellow)
[2021-08-10 17:14] LABS: Ethanol (Alcohol), Blood, Med 102 mg/dL
[2021-08-10 17:20] LABS: Alanine Aminotransfer (ALT/SGP 48 U/L (12-78); Albumin, Blood 3.2 g/dL (3.4-5.0); Albumin/Globulin Ratio 0.9 (0.8-1.8); Alk Phos 109 U/L (50-136); Anion Gap 13 mmol/L (6-16); Aspartate Aminotrans (AST/SGOT 41 U/L (12-37); Bilirubin, Total 2.2 mg/dL (0.1-1.0); Blood Urea Nitrogen 10 mg/dL (8-24); CO2, Blood 20 mmol/L (21-32); Calcium, Blood 8.2 mg/dL (8.5-10.1); Chloride, Blood 100 mmol/L (98-108); Creatinine, Blood 0.83 mg/dL (0.60-1.20); Globulin, Blood 3.5 g/dL (2.2-4.0); Glomerular Filtration Rate >60 (60-); Glucose, Blood 341 mg/dL (70-99); Potassium, Blood 3.3 mmol/L (3.5-5.5); Sodium, Blood 133 mmol/L (136-145); Total Protein, Blood 6.7 g/dL (6.4-8.2)
== END 2021-08-10 20:27 | disposition home or self-care (01) ==
LOC: ER 15:49
PROVIDERS: Emergency Medicine
DX: M54.50 Low back pain, unspecified (principal); I48.91 Unspecified atrial fibrillation; I10 Essential (primary) hypertension; E11.9 Type 2 diabetes mellitus without complications; F32.A Depression, unspecified; Z88.2 Allergy status to sulfonamides; Z91.81 History of falling; Z91.14 Patient's other noncompliance with medication regimen
CPT/HCPCS: 71045; 72100; 80053; 81003; 84484; 85025; 93005; 93010; A9270; G0480

== ENCOUNTER 2023-01-15 13:14 | Inpatient (IN) | payer OTHER ==
[~2023-01-15] VITALS: Ht 182.9 cm; Wt 87.7 kg
[2023-01-15 14:34] LABS: Ethanol (Alcohol), Blood, Med <3 mg/dL
[2023-01-15 14:38] LABS: Alanine Aminotransfer (ALT/SGP 253 U/L (12-78); Albumin, Blood 3.4 g/dL (3.4-5.0); Alk Phos 232 U/L (50-136); Anion Gap 12 mmol/L (6-16); Aspartate Aminotrans (AST/SGOT 466 U/L (12-37); Bilirubin, Total 3.9 mg/dL (0.1-1.0); Blood Urea Nitrogen 14 mg/dL (8-24); CO2, Blood 25 mmol/L (21-32); Chloride, Blood 98 mmol/L (98-108); Creatinine, Blood 0.87 mg/dL (0.60-1.20); Globulin, Blood 3.4 g/dL (2.2-4.0); Glomerular Filtration Rate 87 (60-); Glucose, Blood 360 mg/dL (70-99); Potassium, Blood 3.4 mmol/L (3.5-5.5); Sodium, Blood 135 mmol/L (136-145); Total Protein, Blood 6.8 g/dL (6.4-8.2)
[2023-01-15 15:10] LABS: BASOPHILS ABSOLUTE AUTO 0.03 K/mm3 (0.00-0.23); BASOPHILS PERCENT AUTO 0 % (0-2); EOSINOPHILS PERCENT AUTO 0 % (0-6); IMMATURE GRAN ABSOLUTE AUTO 0.04 K/mm3 (0.00-0.10); IMMATURE GRAN PERCENT AUTO 1 % (0-1); LYMPHOCYTES ABSOLUTE AUTO 0.33 K/mm3 (0.84-5.20); LYMPHOCYTES PERCENT AUTO 5 % (21-46); MONOCYTES ABSOLUTE AUTO 0.48 K/mm3 (0.16-1.47); MONOCYTES PERCENT AUTO 7 % (4-13); Mean Corpuscular HGB 30.4 pg (26.0-34.0); Mean Corpuscular HGB Conc 36.2 g/dL (31.5-36.5); Mean Corpuscular Volume 84 fL (80-100); Mean Platelet Volume 10.3 fL (9.1-12.4); NEUTROPHILS ABSOLUTE AUTO 6.37 K/mm3 (1.96-9.15); NEUTROPHILS PERCENT AUTO 88 % (41-73); Platelet Count 142 K/mm3 (150-400); RDW Coefficient Variation 12.8 % (11.7-14.2); RDW Standard Deviation 38.8 fL (35.1-46.3); White Blood Cell Count 7.25 K/mm3 (4.00-11.30)
[2023-01-15 15:14] LABS: International Normalized Ratio 1.09; Prothrombin Time Results 11.4 Sec (9.7-11.5)
[2023-01-15 18:19] VITALS: BP 130/75
[2023-01-15 19:18] LABS: Source, Urine Clean Catch
[2023-01-15 19:59] VITALS: BP 100/71
[2023-01-15 20:06] LABS: Appearance, Urine Clear (Clear); Bilirubin, Urine Neg (Neg); Blood, Urine Neg (Neg); Color, Urine Yellow (P-Yellow); Glucose Qualitative, Urine 4+ (Neg); Ketones, Urine 3+ (Neg); Leukocyte Esterase, Urine Neg (Neg); Nitrite, Urine Neg (Neg); Protein, Urine 2+ (Neg); Specific Gravity, Urine 1.005 (1.003-1.022); Urobilinogen, Urine 1+ (Normal); pH, Urine 6.5 (5.0-8.0)
[2023-01-15 20:23] LABS: Bacteria Few /hpf; Red Blood Cells, Urine 0-2 /hpf (0-2); Squamous Epithelial Cells Few /hpf (Few); White Blood Cells, Urine 0-2 /hpf (0-5)
[2023-01-15 20:30] LABS: U Amphetamine Screen Not Detected; U Barbituate Screen Not Detected; U Benzodiazapine Screen Not Detected; U Buprenorphine Screen Not Detected; U Cannabinoids Screen Not Detected; U Cocaine Screen Not Detected; U Methadone Screen Not Detected; U Methamphetamine Screen Not Detected; U Opiates Screen Not Detected; U Oxycodone Screen Not Detected; U Phencyclidine Screen Not Detected; U Propoxyphene Screen Not Detected
[2023-01-15 23:13] VITALS: BP 122/89
[2023-01-16 04:16] VITALS: BP 105/68
[2023-01-16 05:44] LABS: CHOL/HDL RATIO 3.3; Cholesterol 123 mg/dL (50-200); HDL Cholesterol 37 mg/dL (>39); LDL/HDL RATIO 0.5; Low Density Lipoprotein Chol 17 mg/dL (0-110); Triglycerides 343 mg/dL (30-160); Very Low Density Lipoprot Chol 68 mg/dL (6-32)
--- NOTE | 2023-01-16 06:36 | NUR ---
SHIFT SUMMARY PATIENT ALERT AND ORIENTED X4. 1 ASSIST WITH FWW TO THE RESTROOM, UNSTEADY ON HIS FEET, SOMETIMES OVERESTIMATES ABILITY, BED ALARM ON. HAD NO COMPLAINTS OF PAIN OR SHORTNESS OF BREATH. SPO2 HIGH 90'S ON ROOM AIR. VITAL SIGNS STABLE, RATE CONTROLLED AFIB ON TELE. NO ACUTE ISSUES NOTED OVERNIGHT. WILL CONTINUE TO MONITOR. CALL LIGHT WITHIN REACH.
[2023-01-16 08:25] VITALS: BP 128/79
--- NOTE | 2023-01-16 11:22 | NUR ---
PT TO MRI 1119 VIA WHEEL CHAIR.
[2023-01-16 11:59] VITALS: BP 114/68
--- NOTE | 2023-01-16 12:44 | NUR ---
ASSUMED CARE NOTE RECEIVED REPORT FROM CHANDA IN PCU AND ASSUMED CARE OF PT AT APPROX 12:30. PT A&OX4, VSS, ON TELE, TOLERATING PO, VOIDING, NO C/O PAIN, RA, 1 ASSIST W/FWW AND GB, NS RUNNING @ 100 MLS/HR VIA POWERGLIDE IN ROSLYN. MEPILEX IN PLACE ON INSIDE OF BOTH KNEES, NO REDNESS NOTED, IN PLACE FOR BONY PROMINENCE. MEPILEX IN PLACE ON COCCYX, SCANT REDNESS NOTED. MEPILEX IN PLACE ON TOP OF BUTTOCKS, SCANT REDNESS NOTED. ALL MEPILEX C/D/I. PT ORIENTED TO ROOM AND CALL LIGHT. CALL LIGHT WITHIN REACH.
[2023-01-16 15:51] VITALS: BP 106/76
--- NOTE | 2023-01-16 17:12 | NUR ---
SHIFT SUMMARY PT A&OX4, NO ACUTE CHANGES THIS SHIFT. CALL LIGHT WITHIN REACH AND PT ABLE TO MAKE NEEDS KNOWN.
--- NOTE | 2023-01-16 18:06 | NUR ---
SHIFT SUMMARY PT A&OX4, BUT FORGETFUL AT TIMES, VSS, TOLERATING PO, INCONTINENT, AND SBA. NS NS RUNNING AT 100 MLS/HR. CALL LIGHT IS WITHIN REACH.
[2023-01-16 19:26] VITALS: BP 92/61
[2023-01-16 21:23] VITALS: BP 109/76
--- NOTE | 2023-01-17 06:31 | NUR ---
SHIFT SUMMARY PATIENT ALERT AND ORIENTED X4. HAD NO COMPLAINTS OF PAIN OR SHORTNESS OF BREATH. ON ROOM AIR. VITAL SIGNS STABLE. NO ACUTE ISSUES NOTED OVERNIGHT. WILL CONTINUE TO MONITOR. CALL LIGHT WITHIN REACH.
[2023-01-17 07:07] VITALS: BP 137/94
[2023-01-17] MEDS ORDERED: LISI5 PO (13:10)
[2023-01-17] MEDS ORDERED: XARELTO20 MG PO (13:11)
[2023-01-17] MEDS ORDERED: METO50ER PO (13:11)
--- NOTE | 2023-01-17 18:38 | NUR ---
DC- PT LEFT AT 1515 [facility]. PT LEFT WITH ALL BELONGINGS. ALL DC INSTRUCTIONS/PAPERWORK DISCUSSED IN DETAIL.
== END 2023-01-17 15:16 | disposition home or self-care (01) | DRG 309 ==
LOC: ER 13:14 → MEDS 17:11 → PCU 17:11 → MEDS 18:59 → ENPENDDIS 01-17 12:41 → MEDS 01-17 15:16
PROVIDERS: Nurse Practitioner Acute Care; Student in an Organized Health Care Education/Training Program; ADMIT Internal Medicine
DX: I48.19 Other persistent atrial fibrillation (principal); G81.94 Hemiplegia, unspecified affecting left nondominant side; K70.30 Alcoholic cirrhosis of liver without ascites; I10 Essential (primary) hypertension; F10.20 Alcohol dependence, uncomplicated; I67.9 Cerebrovascular disease, unspecified; F32.A Depression, unspecified; R47.1 Dysarthria and anarthria; E11.65 Type 2 diabetes mellitus with hyperglycemia; R94.5 Abnormal results of liver function studies; H35.30 Unspecified macular degeneration; R47.81 Slurred speech; E87.6 Hypokalemia; E83.42 Hypomagnesemia; Z90.49 Acquired absence of other specified parts of digestive tract; Z90.89 Acquired absence of other organs; Z98.49 Cataract extraction status, unspecified eye; Z91.148 Patient's other noncompliance with medication regimen for other reason; Z88.2 Allergy status to sulfonamides
CPT/HCPCS: 70450; 70496; 70498; 70551; 76705; 80053; 80061; 81001; 82140; 82947; 83036; 83735; 83880; 85025; 85610; 85730; 92610; 93005; 93010; 93306; 94760; 96374; 97116; 97162; 97165; 97530; 97535; 99285-25; A9270; C1751; J1815; J3475; J3480; J7030; Q9967

== ENCOUNTER 2023-04-22 09:35 | Inpatient (IN) | payer OTHER ==
[~2023-04-22] VITALS: Ht 182.9 cm; Wt 89.0 kg
[~2023-04-22 09:35] MED LIST changes: +LISI5 PO; +METO50ER PO; +XARELTO20 MG PO
[2023-04-22] MEDS ORDERED: IBUP200 PO (11:39)
[2023-04-22 12:50] LABS: BASOPHILS ABSOLUTE AUTO 0.03 K/mm3 (0.00-0.23); BASOPHILS PERCENT AUTO 1 % (0-2); EOSINOPHILS ABSOLUTE AUTO 0.08 K/mm3 (0.00-0.68); EOSINOPHILS PERCENT AUTO 1 % (0-6); Hematocrit 49.5 % (37.0-53.0); Hemoglobin 16.9 g/dL (13.5-17.5); IMMATURE GRAN ABSOLUTE AUTO 0.07 K/mm3 (0.00-0.10); IMMATURE GRAN PERCENT AUTO 1 % (0-1); LYMPHOCYTES ABSOLUTE AUTO 1.86 K/mm3 (0.84-5.20); LYMPHOCYTES PERCENT AUTO 28 % (21-46); MONOCYTES ABSOLUTE AUTO 0.53 K/mm3 (0.16-1.47); MONOCYTES PERCENT AUTO 8 % (4-13); Mean Corpuscular HGB 29.2 pg (26.0-34.0); Mean Corpuscular HGB Conc 34.1 g/dL (31.5-36.5); Mean Corpuscular Volume 86 fL (80-100); Mean Platelet Volume 9.9 fL (9.1-12.4); NEUTROPHILS ABSOLUTE AUTO 4.04 K/mm3 (1.96-9.15); NEUTROPHILS PERCENT AUTO 61 % (41-73); Platelet Count 198 K/mm3 (150-400); RDW Coefficient Variation 12.9 % (11.7-14.2); RDW Standard Deviation 40.1 fL (35.1-46.3); Red Blood Cell Count 5.78 M/mm3 (4.30-5.90); White Blood Cell Count 6.61 K/mm3 (4.00-11.30)
[2023-04-22 13:35] LABS: Albumin, Blood 3.6 g/dL (3.4-5.0); Albumin/Globulin Ratio 0.8 (0.8-1.8); Bilirubin, Total 1.4 mg/dL (0.1-1.0); Bun/Creatinine Ratio 30.7 (12.0-20.0); Calcium, Blood 9.7 mg/dL (8.5-10.1); Creatinine, Blood 0.78 mg/dL (0.60-1.20); Globulin, Blood 4.6 g/dL (2.2-4.0); Potassium, Blood 4.6 mmol/L (3.5-5.5); Total Protein, Blood 8.2 g/dL (6.4-8.2)
--- NOTE | 2023-04-22 18:48 | NUR ---
SHIFT SUMMARY PT A&OX3, PLEASANT & COOPERATIVE, KEANU PO, VOIDING/URINAL, DENIES PAIN, BEDREST REPOSITIONS SELF. PLAN FOR NPO MIDNIGHT, SURGERY TOMORROW WITH DR RIOS (HAS SEEN PATIENT). REPORT TO MANSI RILEY
[2023-04-22 19:52] VITALS: BP 101/63
[2023-04-23] VITALS (17 sets, daily range): BP systolic 99–133; BP diastolic 67–90
--- NOTE | 2023-04-23 05:12 | NUR ---
SHIFT SUMMARY PT RESTED WELL. REPOSITIONS SELF IN BED INDEPENDENTLY. LEFT ANKLE REMAINS SPLINTED AND FROILAN WRAP CDI. PT DENIES PAIN. IV ABX PER ORDERS. NPO SINCE MIDNIGHT FOR SURGERY TODAY. CALL LIGHT WITHIN REACH.
[2023-04-23 06:48] LABS: BASOPHILS ABSOLUTE AUTO 0.03 K/mm3 (0.00-0.23); BASOPHILS PERCENT AUTO 1 % (0-2); EOSINOPHILS ABSOLUTE AUTO 0.14 K/mm3 (0.00-0.68); EOSINOPHILS PERCENT AUTO 2 % (0-6); Hematocrit 42.8 % (37.0-53.0); Hemoglobin 14.7 g/dL (13.5-17.5); IMMATURE GRAN ABSOLUTE AUTO 0.05 K/mm3 (0.00-0.10); IMMATURE GRAN PERCENT AUTO 1 % (0-1); LYMPHOCYTES ABSOLUTE AUTO 2.32 K/mm3 (0.84-5.20); LYMPHOCYTES PERCENT AUTO 36 % (21-46); MONOCYTES ABSOLUTE AUTO 0.61 K/mm3 (0.16-1.47); MONOCYTES PERCENT AUTO 10 % (4-13); Mean Corpuscular HGB 29.5 pg (26.0-34.0); Mean Corpuscular HGB Conc 34.3 g/dL (31.5-36.5); Mean Corpuscular Volume 86 fL (80-100); Mean Platelet Volume 10.2 fL (9.1-12.4); NEUTROPHILS ABSOLUTE AUTO 3.26 K/mm3 (1.96-9.15); NEUTROPHILS PERCENT AUTO 51 % (41-73); Platelet Count 171 K/mm3 (150-400); RDW Coefficient Variation 12.8 % (11.7-14.2); RDW Standard Deviation 39.9 fL (35.1-46.3); Red Blood Cell Count 4.99 M/mm3 (4.30-5.90); White Blood Cell Count 6.41 K/mm3 (4.00-11.30)
[2023-04-23 07:14] LABS: Bun/Creatinine Ratio 25.6 (12.0-20.0); Calcium, Blood 8.8 mg/dL (8.5-10.1); Creatinine, Blood 0.7 mg/dL (0.60-1.20)
--- NOTE | 2023-04-23 10:53 | NUR ---
"Spiritual Care Visit | Pt. Request Pt. is awake in bed and welcomes my visit. Pt. verbalized that he is awaiting a procedure to address a broken bone in his foot. Facilitate a life review. Listen with interest, empathy and a calming presence. Pt. displays evidence of clear thinking, engagement, and awareness. Prayed with Pt. Pt. verbalized gratitude for the spiritual care visit. Soon after our visit he was transported by a surgical nurse into surgery."
--- NOTE | 2023-04-23 11:04 | NUR ---
PT TO OR AT THIS TIME
--- NOTE | 2023-04-23 15:34 | NUR ---
POST OP: REPORT RECEIVED FROM SENIOR PREMIUM AUDITOR. PT TO UNIT AT ABOUT 1430. A/O, VSS. SURGICAL SITE WNL. PT DENIED PAIN AT THIS TIME. PT ABLE TO SIT UP AND EAT JELLO, DRINK WATER. CALLED FOR CBG OF 243 POST OP. SEE ORDER TO GIVE 4 UNITS OF HUMALOG. DOSE GIVEN AND WILL RECHECK CBG BEFORE DINNER.
--- NOTE | 2023-04-23 15:58 | NUR ---
[facility] CALLED AT THIS TIME, PHARMACIST TO FAX OVER PT'S HOME MED LIST. PT REPORTS THAT HE DOES NOT REMEMBER WHAT MEDICATIONS HE TAKES.
[2023-04-23] MEDS ORDERED: LISI5 PO (16:24)
[2023-04-23] MEDS ORDERED: METOPROLOL SUCC25 MG PO (16:25)
[2023-04-23] MEDS ORDERED: XARELTO20 MG PO (16:26)
--- NOTE | 2023-04-23 16:27 | NUR ---
HOME MED LIST UPDATED AT THIS TIME
--- NOTE | 2023-04-23 17:07 | NUR ---
SUMMARY: PT DOING WELL POST OP. SMALL AMT OF RED DRAINAGE ON L LATERAL ANKLE, OTHERWISE SURGICAL SITE WNL. CDI. PT ABLE TO DANGLE AT BEDSIDE AND VOID IN URINAL. REPOSITIONS SELF WELL IN BED. PAIN APPEARS TO BE MANAGED WITH 1 OXY AT THIS TIME. THERAPY PLANS TO SEE PT TOMORROW. NO ACUTE SAFETY CONCERNS AT THIS TIME.
[2023-04-24 04:48] VITALS: BP 128/76
--- NOTE | 2023-04-24 05:25 | NUR ---
SHIFT SUMMARY POD1 L ANKLE ORIF. CAP REFILL REMAINS BRISK AND PT CAN MOVE TOES ON COMMAND. DRESSING REMAISN C/D/I. ATTEMPTED TO KEEP LLE ELEVATED AND ICED, NOTED TO BE DIFFICULT D/T PT MOVING AROUND A LOT IN HIS SLEEP. VSS. PT SLEPT WELL T/O THEN NIGHT. MEDICATED FOR PAIN W/ OXY ONCE. PT TOLLERATING PO INTAKE W/O N/V. NO ACUTE EVENTS NOTED T/O THE NIGHT. PLAN FOR PHYSICAL THERAPY TODAY AND ARRANGE SAFE D/C
[2023-04-24 07:03] LABS: Albumin, Blood 2.8 g/dL (3.4-5.0); Albumin/Globulin Ratio 0.8 (0.8-1.8); Bun/Creatinine Ratio 30.3 (12.0-20.0); Calcium, Blood 8.5 mg/dL (8.5-10.1); Creatinine, Blood 0.73 mg/dL (0.60-1.20); Globulin, Blood 3.6 g/dL (2.2-4.0); Potassium, Blood 4.3 mmol/L (3.5-5.5); Total Protein, Blood 6.4 g/dL (6.4-8.2)
[2023-04-24 07:20] VITALS: BP 142/74
--- NOTE | 2023-04-24 14:18 | NUR ---
Spiritual Care Visit. Pt. is awke in bed and welcomes my visit. Facilitated a more thorough life review with the Pt. and considered matters of some of the Pts. lowest emotional points. Pt. 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 Established rapport with the Pt. Prayed with Pt. Pt. verbalized gratitude for the spiritual care visit.
[2023-04-24 15:59] VITALS: BP 100/72
--- NOTE | 2023-04-24 18:53 | NUR ---
SHIFT SUMMARY POD1 L ANKLE ORIF, A/OX4, VSS, TOLERATING PO, PAIN WELL MANAGED PER EMAR, NWB LLE, WORKING WITH THERAPY, LOOKING FOR REHAB PLACEMENT RECOMMENDED BY THERAPY. NO ACUTE EVENTS THIS SHIFT, CALL LIGHT IN REACH.
[2023-04-24 19:50] VITALS: BP 100/69
--- NOTE | 2023-04-25 06:10 | NUR ---
SHIFT SUMMARY POD 2 L ANKLE ORIF. NO ACUTE CHANGES OVERNIGHT. VSS. TOLERATING ORALS. PT DID NOT AMBULATE OVERNIGHT. PT DID NOT PASS PHYSCIAL THERAPY 04/24/23, ANTICIPATED DISCHARGE TO A SENIOR CARE FACILITY. VOIDING INDEPENDENTLY. MEDICATED PER EMAR FOR PAIN. CALL LIGHT WITHIN REACH, BED IN LOWEST POSITION, WILL REPORT TO DAY RN.
[2023-04-25 06:12] VITALS: BP 95/63
[2023-04-25 07:05] VITALS: BP 113/80
[2023-04-25 14:55] VITALS: BP 114/74
--- NOTE | 2023-04-25 19:21 | NUR ---
SHIFT SUMMARY POD 2 L ANKLE ORIF, A/OX4, VSS, TOLERATING PO, PAIN WELL MANAGED, ABLE TO STAND PIVOT TO BSC, PLAN TO DC TO [facility] IN THE MORNING. NO ACUTE EVENTS THIS SHIFT, CALL LIGHT IN REACH.
[2023-04-25 20:17] VITALS: BP 107/64
[2023-04-26 05:10] VITALS: BP 111/72
[2023-04-26 07:19] VITALS: BP 123/77
--- NOTE | 2023-04-26 08:00 | NUR ---
SHIFT SUMMARY NOC. PT POD 3 FOR LEFT ANKLE ORIF. PT MEDICATED FOR PAIN WITH RELIEF. PT HAS ORTHO GLASS, GAUZE, AND FROILAN C/D/I ON LEFT ANKLE. CAP REFILL GOOD AND SENSATION TO PALPATION PRESENT. HAS N/T AT BASELINE PER PT REPORT. PT DID NOT NEED SLIDE SCALE CORRECTION FOR DM AND HAD LONG ACTING INSULIN. PT VOIDING URINE VIA URINAL. PT RESTED WITH EYES CLOSED AND CALL LIGHT IN REACH.
[2023-04-26] MEDS ORDERED: Acetaminophen325 M1 PO (10:32)
[2023-04-26] MEDS ORDERED: ATOR40TA PO (10:32)
[2023-04-26] MEDS ORDERED: ASPI81CH PO (10:32)
[2023-04-26] MEDS ORDERED: DOCUZEN 8.6-501 EACH PO (10:33)
[2023-04-26] MEDS ORDERED: INSULANI SC (10:36)
[2023-04-26] MEDS ORDERED: HUMALOG KW100 UNIT/1 SC (10:37)
[2023-04-26] MEDS ORDERED: VISBIOME 112.51 EACH PO (10:37)
[2023-04-26] MEDS ORDERED: AMOX-CLAV 500-1 EAC5 PO (10:39)
[2023-04-26] MEDS ORDERED: Norco 5-325 Ta1 EACH PO (10:40)
[2023-04-26 12:31] LABS: SARS-Cov-2 (COVID-19) PCR, MMC NEGATIVE (NEGATIVE)
[2023-04-26 14:28] VITALS: BP 119/80
--- NOTE | 2023-04-26 15:46 | NUR ---
DISCHARGE SUMMARY PATIENT TO DISCHARGE TO [facility] THIS SHIFT VIA RACHID. CALLED REPORT TO DAVION AT [facility], QUESTIONS ANSWERED, VERBALIZED UNDERSTANDING OF DISCHARGE INSTRUCTIONS. PACKET SENT WITH LAST WAXER. HARD SCRIPTS FOR PAIN MEDS AND ABX SENT IN PACKET. IV REMOVED THIS AM, NOT PATENT. DR LOUIS OKAYED PO KEFLEX, HOWEVER, DR RIOS HAD ALREADY WRITTEN FOR AUGMENTIN, DR LOUIS DEFERRED TO THIS ORDER AND KEFLEX D/C. SURGICAL DRESSING CDI ON DISCHARGE. CARES ONGOING.
== END 2023-04-26 16:35 | DRG 493 ==
LOC: ER 09:35 → SURS 09:36
PROVIDERS: Emergency Medicine; Family Medicine; Internal Medicine; Podiatrist Foot & Ankle Surgery; Student in an Organized Health Care Education/Training Program; ADMIT Hospitalist
PROC: 0QSHXZZ Reposition Left Tibia, External Approach (ICD-10-PCS; 2023-04-22)
PROC: 0MQR0ZZ Repair Left Ankle Bursa and Ligament, Open Approach (ICD-10-PCS; 2023-04-23)
PROC: 0QSK04Z Reposition Left Fibula with Internal Fixation Device, Open Approach (ICD-10-PCS; principal; 2023-04-23 12:00)
DX: S82.62XA Displaced fracture of lateral malleolus of left fibula, initial encounter for closed fracture (principal); I48.19 Other persistent atrial fibrillation; L03.116 Cellulitis of left lower limb; S82.52XA Displaced fracture of medial malleolus of left tibia, initial encounter for closed fracture; E78.5 Hyperlipidemia, unspecified; I10 Essential (primary) hypertension; Z66 Do not resuscitate; E11.65 Type 2 diabetes mellitus with hyperglycemia; K70.30 Alcoholic cirrhosis of liver without ascites; Z86.73 Personal history of transient ischemic attack (TIA), and cerebral infarction without residual deficits; Z88.2 Allergy status to sulfonamides; Z87.891 Personal history of nicotine dependence
CPT/HCPCS: 27818; 36415; 73600; 73610; 80048; 80053; 82947; 83036; 83880; 85025; 96361-59; 96365-59; 96366; 96375-59; 96376; 97110; 97110-CQ; 97162; 97530; 99152; 99285-25; A9270; C1713; G0378; J0690; J1100; J1170; J1815; J1885; J2250; J2405; J2704; J3010; J7030; J7050; J7120; U0002

== ENCOUNTER 2023-10-03 10:03 | Emergency (ER) | payer OTHER ==
[~2023-10-03] VITALS: Ht 182.9 cm; Wt 81.7 kg
[~2023-10-03 10:03] MED LIST changes: +AMOX-CLAV 500-1 EAC5 PO; +ASPI81CH PO; +ATOR40TA PO; +Acetaminophen325 M1 PO; +DOCUZEN 8.6-501 EACH PO; +HUMALOG KW100 UNIT/1 SC; +IBUP200 PO; +IMODIUM A-D2 M1 PO; +INSULANI SC; +METOPROLOL SUCC25 MG PO; +NOVOLOG FL100 UNIT/3 SC; +Norco 5-325 Ta1 EACH PO; +VISBIOME 112.51 EACH PO
[2023-10-03] MEDS ORDERED: Acetaminophen 325 MG TABLET PO ONE (10:50)
[2023-10-03] MEDS ORDERED: NS 1,000 ML IV SCH ×2 (10:50→13:10)
[2023-10-03 10:52] LABS: BASOPHILS ABSOLUTE AUTO 0.03 K/mm3 (0.00-0.23); BASOPHILS PERCENT AUTO 0 % (0-2); EOSINOPHILS PERCENT AUTO 0 % (0-6); Hematocrit 41.9 % (37.0-53.0); Hemoglobin 14.3 g/dL (13.5-17.5); IMMATURE GRAN ABSOLUTE AUTO 0.09 K/mm3 (0.00-0.10); IMMATURE GRAN PERCENT AUTO 1 % (0-1); LYMPHOCYTES ABSOLUTE AUTO 1.01 K/mm3 (0.84-5.20); LYMPHOCYTES PERCENT AUTO 9 % (21-46); MONOCYTES ABSOLUTE AUTO 1.07 K/mm3 (0.16-1.47); MONOCYTES PERCENT AUTO 10 % (4-13); Mean Corpuscular HGB 27.6 pg (26.0-34.0); Mean Corpuscular HGB Conc 34.1 g/dL (31.5-36.5); Mean Corpuscular Volume 81 fL (80-100); Mean Platelet Volume 9.3 fL (9.1-12.4); NEUTROPHILS ABSOLUTE AUTO 8.96 K/mm3 (1.96-9.15); NEUTROPHILS PERCENT AUTO 80 % (41-73); Platelet Count 207 K/mm3 (150-400); RDW Coefficient Variation 14.1 % (11.7-14.2); RDW Standard Deviation 41.4 fL (35.1-46.3); Red Blood Cell Count 5.19 M/mm3 (4.30-5.90); White Blood Cell Count 11.16 K/mm3 (4.00-11.30)
[2023-10-03 11:03] LABS: Albumin, Blood 2.8 g/dL (3.4-5.0); Albumin/Globulin Ratio 0.7 (0.8-1.8); Bilirubin, Total 2.6 mg/dL (0.1-1.0); Bun/Creatinine Ratio 20.1 (12.0-20.0); Calcium, Blood 8.3 mg/dL (8.5-10.1); Creatinine, Blood 0.75 mg/dL (0.60-1.20); Globulin, Blood 4.1 g/dL (2.2-4.0); Total Protein, Blood 6.9 g/dL (6.4-8.2)
[2023-10-03 12:32] LABS: Glucose, Blood 350 mg/dL (70-99)
[2023-10-03 12:38] LABS: PCO2 Venous 37.4 mmHg (38-42); pH Blood Venous 7.35 (7.34-7.37)
[2023-10-03 12:39] LABS: Base Excess Venous -5.1 mmol/L; Bicarbonate Venous 20.3 mmol/L (24.0-30.0)
[2023-10-03] MEDS ORDERED: Insulin Regular 100 Unit/ML 1ML Dose SC ONE ×2 (12:45→14:40)
[2023-10-03 12:51] LABS: Albumin, Blood 2.6 g/dL (3.4-5.0); Albumin/Globulin Ratio 0.6 (0.8-1.8); Bilirubin, Total 2.2 mg/dL (0.1-1.0); Bun/Creatinine Ratio 18.4 (12.0-20.0); Calcium, Blood 8.1 mg/dL (8.5-10.1); Creatinine, Blood 0.82 mg/dL (0.60-1.20); Potassium, Blood 4.2 mmol/L (3.5-5.5); Total Protein, Blood 6.6 g/dL (6.4-8.2)
[2023-10-03 15:16] LABS: Albumin, Blood 2.3 g/dL (3.4-5.0); Albumin/Globulin Ratio 0.6 (0.8-1.8); Bilirubin, Total 1.8 mg/dL (0.1-1.0); Bun/Creatinine Ratio 19.8 (12.0-20.0); Calcium, Blood 7.5 mg/dL (8.5-10.1); Creatinine, Blood 0.66 mg/dL (0.60-1.20); Globulin, Blood 3.9 g/dL (2.2-4.0); Potassium, Blood 4.4 mmol/L (3.5-5.5); Total Protein, Blood 6.2 g/dL (6.4-8.2)
[2023-10-03 15:45] VITALS: BP 137/94
== END 2023-10-03 15:56 ==
LOC: ER 10:03
PROVIDERS: Family Medicine
DX: I48.91 Unspecified atrial fibrillation (principal); E11.10 Type 2 diabetes mellitus with ketoacidosis without coma; E11.65 Type 2 diabetes mellitus with hyperglycemia; I10 Essential (primary) hypertension; Z87.891 Personal history of nicotine dependence; Z86.73 Personal history of transient ischemic attack (TIA), and cerebral infarction without residual deficits; Z79.4 Long term (current) use of insulin; Z79.82 Long term (current) use of aspirin; Z79.899 Other long term (current) drug therapy; Z88.2 Allergy status to sulfonamides
CPT/HCPCS: 80053; 82803; 82947; 85025; 93005; 93010; 96360; 99285-25; A9270; J1815; J7030

== ENCOUNTER 2023-10-06 12:10 | Inpatient (IN) | payer OTHER ==
[~2023-10-06] VITALS: Ht 182.9 cm; Wt 83.9 kg
[2023-10-06] MEDS ORDERED: Lactated Ringer's 1,000 ML IV ONE ×2 (12:20→12:30)
[2023-10-06 13:07] LABS: Source, Urine Clean Catch
[2023-10-06] MEDS ORDERED: Metoprolol Tartrate 1 MG/ML 5 ML VIAL IV ONE (13:10)
[2023-10-06 13:11] LABS: BASOPHILS ABSOLUTE AUTO 0.03 K/mm3 (0.00-0.23); BASOPHILS PERCENT AUTO 0 % (0-2); EOSINOPHILS ABSOLUTE AUTO 0.06 K/mm3 (0.00-0.68); EOSINOPHILS PERCENT AUTO 1 % (0-6); Hematocrit 41.3 % (37.0-53.0); Hemoglobin 14.3 g/dL (13.5-17.5); IMMATURE GRAN PERCENT AUTO 1 % (0-1); LYMPHOCYTES ABSOLUTE AUTO 1.38 K/mm3 (0.84-5.20); LYMPHOCYTES PERCENT AUTO 12 % (21-46); MONOCYTES ABSOLUTE AUTO 1.12 K/mm3 (0.16-1.47); MONOCYTES PERCENT AUTO 10 % (4-13); Mean Corpuscular HGB 27.8 pg (26.0-34.0); Mean Corpuscular HGB Conc 34.6 g/dL (31.5-36.5); Mean Corpuscular Volume 80 fL (80-100); Mean Platelet Volume 9.3 fL (9.1-12.4); NEUTROPHILS PERCENT AUTO 76 % (41-73); Platelet Count 283 K/mm3 (150-400); RDW Coefficient Variation 14.3 % (11.7-14.2); RDW Standard Deviation 42.1 fL (35.1-46.3); Red Blood Cell Count 5.15 M/mm3 (4.30-5.90); White Blood Cell Count 11.39 K/mm3 (4.00-11.30)
[2023-10-06 13:22] LABS: Appearance, Urine Clear (Clear); Bilirubin, Urine Neg (Neg); Blood, Urine Neg (Neg); Color, Urine Yellow (P-Yellow); Glucose Qualitative, Urine 4+ (Neg); Ketones, Urine 4+ (Neg); Leukocyte Esterase, Urine Neg (Neg); Nitrite, Urine Neg (Neg); Protein, Urine Neg (Neg); Specific Gravity, Urine 1.015 (1.003-1.022); Urobilinogen, Urine 1+ (Normal)
[2023-10-06 13:33] LABS: Influenza A, PCR NEGATIVE (NEGATIVE); Influenza B, PCR NEGATIVE (NEGATIVE); Resp Syncytial Virus, PCR NEGATIVE (NEGATIVE); SARS-Cov-2 (COVID-19) PCR, MMC NEGATIVE (NEGATIVE)
[2023-10-06 13:38] LABS: Base Excess Venous -7.4 mmol/L; Bicarbonate Venous 18.4 mmol/L (24.0-30.0); PCO2 Venous 39.8 mmHg (38-42); pH Blood Venous 7.29 (7.34-7.37)
[2023-10-06 13:47] LABS: Albumin, Blood 2.2 g/dL (3.4-5.0); Albumin/Globulin Ratio 0.5 (0.8-1.8); Bilirubin, Total 1.4 mg/dL (0.1-1.0); Bun/Creatinine Ratio 27.7 (12.0-20.0); Calcium, Blood 8.3 mg/dL (8.5-10.1); Creatinine, Blood 0.72 mg/dL (0.60-1.20); Globulin, Blood 4.4 g/dL (2.2-4.0); Magnesium, Blood 1.7 mg/dL (1.6-2.4); Potassium, Blood 3.8 mmol/L (3.5-5.5); Thyroid Stimulating Hormone 0.693 uIU/mL (0.360-4.800); Total Protein, Blood 6.6 g/dL (6.4-8.2)
[2023-10-06] MEDS ORDERED: Insulin Human Regular 100 UNIT in NS 100 ML IV SCH (13:55)
[2023-10-06] MEDS ORDERED: NS 1,000 ML IV SCH ×2 (15:30)
[2023-10-06] MEDS ORDERED: Ondansetron HCl 2 MG / ML 2ML Vial IV PRN (15:30)
[2023-10-06] MEDS ORDERED: Insulin Human Lispro 100 Units/ML 3ML Syringe SC SCH (16:00)
[2023-10-06] MEDS ORDERED: Metoprolol Succinate 50 MG TABCR PO SCH (17:00)
[2023-10-06 17:28] VITALS: BP 109/75
--- NOTE | 2023-10-06 18:28 | NUR ---
INSULIN PEN AND PT ARRIVAL PT ARRIVED TO ROOM AT 1710 VIA GURNEY COMPLETELY SOILED WITH URINE AND LIQUID STOOL. PT STATES THAT HE CALLED FOR HELP AT NOON AND DID NOT RECEIVE ANY HELP AND COULD NOT AVOID SOILING HIMSELF. HE STATED THAT HE WAS EMBARRASSED AND SORRY. THIS NURSE AND OPTOMETRIST UTILIZED THERAPEUTIC COMMINICATION AND ACTIVE LISTENING AND TRIED TO REASSURE PT. GLUCOSE PER LAB AT 1210 WAS 349, CBG IN ER AT 1640 WAS 322. HOWEVER INSULIN NOT GIVEN TO PT. PER ER NURSE, PT INSULIN HAD NOT ARRIVED FROM PHARMACY. THIS NURSE CALLED FOR INSULIN AGAIN AT 1820. PHARMACY STAFF STATES THAT THEY HAD IT IN HAND TO SEND. THIS NURSE REQUESTED IT BE SENT IMMEDIATELY PT WAS IN ROOM. PT ORIENTED TO ROOM AND CALL LIGHT. GIVEN FOOD AND WATER. PT PHOTO OF WOUND TO RIGHT THIRD TOE IN CHART. PT HAS EXCORITATION R/T INCONTINENCE. BED IN LOW POSITION, CALL LIGHT WITHIN REACH.
[2023-10-06 18:38] LABS: Albumin, Blood 2.1 g/dL (3.4-5.0); Anion Gap 14 mmol/L (3-11); Blood Urea Nitrogen 18 mg/dL (8-24); Bun/Creatinine Ratio 23.8 (12.0-20.0); CO2, Blood 20 mmol/L (21-32); Calcium, Blood 8.4 mg/dL (8.5-10.1); Chloride, Blood 102 mmol/L (98-108); Creatinine, Blood 0.76 mg/dL (0.60-1.20); Glomerular Filtration Rate 90 (60-); Glucose, Blood 317 mg/dL (70-99); Magnesium, Blood 1.6 mg/dL (1.6-2.4); Phosphorus, Blood 2.7 mg/dL (2.5-4.9); Sodium, Blood 132 mmol/L (136-145)
[2023-10-06 19:33] VITALS: BP 123/80
[2023-10-06] MEDS ORDERED: Insulin Glargine-Yfgn 100 Unit/mL 3 ML SYR SC SCH (21:00)
[2023-10-06 23:33] LABS: Bun/Creatinine Ratio 22.8 (12.0-20.0); Calcium, Blood 7.8 mg/dL (8.5-10.1); Creatinine, Blood 0.7 mg/dL (0.60-1.20); Potassium, Blood 3.7 mmol/L (3.5-5.5)
[2023-10-07 02:54] VITALS: BP 116/78
[2023-10-07 05:23] LABS: Hematocrit 41.1 % (37.0-53.0); Hemoglobin 14.1 g/dL (13.5-17.5); Mean Corpuscular HGB 27.3 pg (26.0-34.0); Mean Corpuscular HGB Conc 34.3 g/dL (31.5-36.5); Mean Corpuscular Volume 80 fL (80-100); Mean Platelet Volume 8.9 fL (9.1-12.4); Platelet Count 252 K/mm3 (150-400); RDW Coefficient Variation 14.5 % (11.7-14.2); RDW Standard Deviation 41.6 fL (35.1-46.3); Red Blood Cell Count 5.17 M/mm3 (4.30-5.90); White Blood Cell Count 9.85 K/mm3 (4.00-11.30)
--- NOTE | 2023-10-07 05:49 | NUR ---
PT A&OX3-4 AND ANSWERS QUESTIONS APPROPRIATELY. PT RECEIVED HS MEDICATIONS AND WAS MEDICATED Q4HR WITH INSULIN PER EMAR GUIDELINES. PT SPENT MOST OF SHIFT IN BED WITH EYES CLOSED AND RESPIRATIONS EVEN AND UNLABORED. NEW PERIPHERAL IV PLACED. VSS, NO COMPLAINTS OF CP/PRESSURE OR SOB. NO ACUTE EVENTS AT THIS TIME. PT LEFT IN A POSITION OF SAFETY WITH FALL PRECAUTIONS IN PLACE AND CALL LIGHT IN REACH.
[2023-10-07 05:57] LABS: Anion Gap 12 mmol/L (3-11); Blood Urea Nitrogen 13 mg/dL (8-24); Bun/Creatinine Ratio 22.7 (12.0-20.0); CHOL/HDL RATIO 3.9; CO2, Blood 22 mmol/L (21-32); Chloride, Blood 104 mmol/L (98-108); Cholesterol 81 mg/dL (50-200); Creatinine, Blood 0.57 mg/dL (0.60-1.20); Glomerular Filtration Rate 98 (60-); Glucose, Blood 279 mg/dL (70-99); HDL Cholesterol 21 mg/dL (>39); Low Density Lipoprotein Chol 42 mg/dL (0-110); Potassium, Blood 3.7 mmol/L (3.5-5.5); Sodium, Blood 134 mmol/L (136-145); Triglycerides 91 mg/dL (30-160); Very Low Density Lipoprot Chol 18 mg/dL (6-32)
[2023-10-07 07:46] VITALS: BP 114/84
[2023-10-07] MEDS ORDERED: Insulin Glargine-Yfgn 100 Unit/mL 3 ML SYR SC SCH (08:00)
[2023-10-07] MEDS ORDERED: Acetaminophen 325 MG TABLET PO PRN (08:05)
[2023-10-07] MEDS ORDERED: Lisinopril 5 MG Tab PO SCH (09:00)
[2023-10-07] MEDS ORDERED: Rivaroxaban 10 MG Tab PO SCH (09:00)
[2023-10-07] MEDS ORDERED: Enoxaparin 40 MG/0.4 ML SYR SC SCH (09:00)
[2023-10-07 15:15] VITALS: BP 134/89
[2023-10-07] MEDS ORDERED: Insulin Human Lispro 100 Units/ML 3ML Syringe SC SCH (16:30)
--- NOTE | 2023-10-07 17:49 | NUR ---
TRANSFER NOTE/SHIFT SUMMARY PT TRANSFERED AT 1700, REPORT RECEIVED FROM OSVALDO WELLS. PT ON CONTACT PRECAUTIONS FOR BED BUGS AND CDIFF PENDING RULE-OUT. STOOL SPECIMEN HAS YET TO BE COLLECTED. PT ORIENTED TO THE ROOM BUT HE IS CONFUSED, HE THINKS HE IS AT [facility]. THIS NURSE CONTINUED TO ATTEMPT TO REORIENT. BA ON. PT REPOSITIONED. BRIEFS IN PLACE. CALL LIGHT WITHIN REACH, BED LOCKED AND IN THE LOWEST POSITION. WILL REPORT TO ONCOMING NURSE.
--- NOTE | 2023-10-07 17:53 | NUR ---
shift summary/ transfer note- Pt transfered to back barakat for fall risk. He was getting more confused toward the end of the shift and becoming more unsteady. Pt alert and oriented to self only at the time of transfer to room 347. A slight change from earlier in the day as he has become less redirectable. Pt transfered in the bed, no s&s of distress noted at the time of bedside report.
[2023-10-07 19:31] VITALS: BP 94/60
--- NOTE | 2023-10-07 22:20 | NUR ---
ENGRAVER LETTER REPORTS AFIB TO 140 AND BACK TO AFIB 117. PATIENT HAVING INCREASED AGITATION WITH CONFUSION YELLING IN ROOM. IN BILATERAL WRIST RESTRAINTS. TM
--- NOTE | 2023-10-07 22:36 | NUR ---
PATIENT HAVING INCREASED AGITATION YELLING IN BED. NOT ABLE TO ORIENT AT THIS TIME. IN WRIST RESTRAINTS HAVING PULLED TELE LEADS OFF AND MULTIPLE OUT OF BED ATTEMPTS PER DAY RN. GASPAR.
--- NOTE | 2023-10-07 23:16 | NUR ---
PATIENT HAVING AUDITORY HALLUCINATIONS. WCTM.
[2023-10-08 03:28] VITALS: BP 120/82
--- NOTE | 2023-10-08 04:12 | NUR ---
SHIFT SUMMARY PATIENT HAVING INCREASED CONFUSION AND AGITATION. HR UP TO 140 PER SENIOR WEALTH ADVISOR WHEN TRYING TO GET OUT OF BED. ALERT TO SELF. NOT ABLE TO FOLLOW DIRECTIONS AT THIS TIME TRYING MULTIPLE TIMES TO GET OOB. REPORTS WANT TO GO OUT TO HIS CAR AND SLEEP IN HIS BED. DENIES CHEST PAIN, SOB, AND N/V. VSS/AFEBRILE. PIV INTACT. TELE MONITOR AFIB 84. AK CHIN. CBG 186. IN BILATERAL SOFT WRIST RESTRAINTS PER ORDER. CALL LIGHT IN REACH. BED IN LOWEST POSITION AND ALARM ACTIVATED. WILL CONTINUE TO MONITOR UNTIL DAY SHIFT NURSE ASSUMES CARE.
[2023-10-08 06:26] LABS: Hemoglobin 13.8 g/dL (13.5-17.5); Mean Corpuscular HGB 27.8 pg (26.0-34.0); Mean Corpuscular HGB Conc 34.5 g/dL (31.5-36.5); Mean Corpuscular Volume 81 fL (80-100); Mean Platelet Volume 9.2 fL (9.1-12.4); Platelet Count 288 K/mm3 (150-400); RDW Coefficient Variation 14.6 % (11.7-14.2); RDW Standard Deviation 42.4 fL (35.1-46.3); Red Blood Cell Count 4.97 M/mm3 (4.30-5.90); White Blood Cell Count 13.93 K/mm3 (4.00-11.30)
[2023-10-08 07:38] LABS: Bun/Creatinine Ratio 16.2 (12.0-20.0); Creatinine, Blood 0.62 mg/dL (0.60-1.20); Potassium, Blood 3.1 mmol/L (3.5-5.5)
[2023-10-08 07:42] VITALS: BP 122/86
[2023-10-08] MEDS ORDERED: Atorvastatin 40 MG Tab PO SCH (09:00)
--- NOTE | 2023-10-08 12:04 | NUR ---
RN NOTE CYRIL RESTRAINT WAS REMOVED AT 0800HRS, PT WAS CALM AT TIME RESTRAINT WAS REMOVED, RESTING CLAMLY IN BED. CYRIL RESRAINT APPLIED AT 1130 PT GOT OUT OF BED TWICE, SETTING OFF BED ALARM, AND OUT OF CHAIR ONCE. WHEN STANDING HE WAS UNSTEADY AND COULD NOT BE VERBALLY REDIRECTED. HE IS IN CONTACT ISOLATION FOR BEDBUG INFESTATION. IN CHAIR NOW WITH CYRIL RESTRAINT ON, CHAIR ALARM ON. DR SHETTY CALLED AND NOTIFIED OF NEED FOR CYRIL RESTRAINT.
[2023-10-08 16:12] VITALS: BP 100/54
--- NOTE | 2023-10-08 16:13 | NUR ---
SHIFT SUMMARY MR FRY HAD RESTRAINTS REMOVED AT 0800HRS. HE WAS CALM AND RESTING IN BED. HE IS IN CONTACT ISOLATION AND GOT UP OUT OF BED/CHAIR AND COULD NOT BE VERBALLY REDIRECTED. AFTER REPEATED EPISODES CYRLI VEST RESTRAINT WAS APPLIED AT 1130HRS. MR FRY IS CONFUSED, ORIENTATED TO HIMSELF, MONTH AND YEAR. VISUAL HALLUCINATIONS: HE TOLD ME HE COULD SEE GLASS NOTES ON THE FLOOR. HE DOES NOT KNOW THAT HE IS IN HOSPITAL AND NEEDS FREQUENT REMINDING. IN CHAIR FOR MUCH OF THE DAY. CHAIR ALARM ON, CALL LIGHT IN REACH. HE DENIES ANY PAIN.
[2023-10-08] MEDS ORDERED: OLANZapine ODT 5 MG Tab MM PRN (16:55)
[2023-10-08] MEDS ORDERED: Potassium Chloride 20 MEQ/15 ML UDC PO ONE (18:10)
[2023-10-08 19:52] VITALS: BP 104/61
--- NOTE | 2023-10-09 05:51 | NUR ---
SHIFT SUMMARY NOC PT A/O TO SELF. PLEASANTLY CONFUSED, BUT DIFFICULT TO REDIRECT. VSS. PT WAS IN CYRIL VEST AT BEGINNING OF SHIFT, BUT TOOK IT OFF. BILATERAL SOFT WRIST RESTRAINTS INITIATED 10/08/23 @ 2122 AND EXPIRES 10/09/23 @ 2122. HS CBG 129 SCHEDULED 10 UNITS LONG ACTING INSULIN GIVEN. PT ON CONTACT ISOLATION FOR BED BUGS. PT IS AWAITING DISCHARGE TO [facility] WHEN MEDICALLY STABLE. PT CURRENTLY RESTING WITH BED ALARM ON, BED IN LOWEST POSITION, AND CALL LIGHT WITHIN REACH.
[2023-10-09 05:55] LABS: Hematocrit 40.3 % (37.0-53.0); Mean Corpuscular HGB 27.5 pg (26.0-34.0); Mean Corpuscular HGB Conc 34.7 g/dL (31.5-36.5); Mean Corpuscular Volume 79 fL (80-100); Mean Platelet Volume 9.2 fL (9.1-12.4); Platelet Count 302 K/mm3 (150-400); RDW Coefficient Variation 14.6 % (11.7-14.2); RDW Standard Deviation 42.2 fL (35.1-46.3); White Blood Cell Count 15.18 K/mm3 (4.00-11.30)
[2023-10-09 06:01] VITALS: BP 90/62
[2023-10-09 06:10] LABS: Bun/Creatinine Ratio 16.1 (12.0-20.0); Calcium, Blood 8.5 mg/dL (8.5-10.1); Creatinine, Blood 0.87 mg/dL (0.60-1.20); Potassium, Blood 3.3 mmol/L (3.5-5.5)
[2023-10-09] MEDS ORDERED: Potassium Chloride 20 MEQ TabCR PO ONE (06:45)
[2023-10-09 07:33] VITALS: BP 126/88
[2023-10-09] MEDS ORDERED: CefTRIAXone Sodium 2,000 MG in NS 100 ML IV SCH (09:00)
[2023-10-09 14:37] LABS: Source, Urine Clean Catch
[2023-10-09 14:40] LABS: Blood, Urine 1+ (Neg); Glucose Qualitative, Urine 2+ (Neg); Ketones, Urine 3+ (Neg); Leukocyte Esterase, Urine 1+ (Neg); Nitrite, Urine Neg (Neg); Protein, Urine 2+ (Neg); Specific Gravity, Urine 1.015 (1.003-1.022); Urobilinogen, Urine 3+ (Normal)
[2023-10-09 14:42] LABS: Appearance, Urine Hazy (Clear); Bilirubin, Urine 1+ (Neg); Color, Urine Yellow (P-Yellow)
[2023-10-09 14:51] LABS: Amorphous Light (0-Heavy); Bacteria Mod /hpf; Mucus Light (0-Heavy)
[2023-10-09 14:52] LABS: Hyaline Casts 0-2 /lpf (0-2); Red Blood Cells, Urine 0-2 /hpf (0-2); Squamous Epithelial Cells Rare /hpf (Few)
--- NOTE | 2023-10-09 16:49 | NUR ---
SHIFT SUMMARY: PT IS A&OX3-4; MORE ALERT, LESSED CONFUSED, AND COOPERATIVE TODAY. WRIST RESTRAINTS D/C'D DUE TO NOT GETTING UP OUT OF BED, FOLLOWS INSTRUCTIONS, AND CALLS APPROPRIATELY. HE IS EATING, DRINKING, AND VOIDING (INDEPENDENTLY/CONTINENTLY) HE WORKED WITH THERAPY TODAY AND WAS IN THE BEDSIDE RECLINER FOR LUNCH AND PART OF THE AFTERNOON. HE IS CURRENTLY IN BED, RESTING-RESP/EVEN AND UNLABORED, CALL LIGHT WITHIN REACH, BED ALARM ON, NO SIGNS OR SYMPTOMS OF DISTRESS, PLAN OF CARE ONGOING. [facility] RETURN TO [facility].
[2023-10-09 17:10] VITALS: BP 105/70
[2023-10-09 19:34] VITALS: BP 93/62
[2023-10-09] MEDS ORDERED: Insulin Glargine-Yfgn 100 Unit/mL 3 ML SYR SC SCH (21:00)
[2023-10-10 03:04] VITALS: BP 90/61
[2023-10-10 05:45] LABS: BASOPHILS ABSOLUTE AUTO 0.02 K/mm3 (0.00-0.23); BASOPHILS PERCENT AUTO 0 % (0-2); EOSINOPHILS ABSOLUTE AUTO 0.06 K/mm3 (0.00-0.68); EOSINOPHILS PERCENT AUTO 0 % (0-6); Hematocrit 41.4 % (37.0-53.0); Hemoglobin 13.9 g/dL (13.5-17.5); IMMATURE GRAN PERCENT AUTO 1 % (0-1); LYMPHOCYTES ABSOLUTE AUTO 1.74 K/mm3 (0.84-5.20); LYMPHOCYTES PERCENT AUTO 12 % (21-46); MONOCYTES ABSOLUTE AUTO 1.27 K/mm3 (0.16-1.47); MONOCYTES PERCENT AUTO 9 % (4-13); Mean Corpuscular HGB 27.1 pg (26.0-34.0); Mean Corpuscular HGB Conc 33.6 g/dL (31.5-36.5); Mean Corpuscular Volume 81 fL (80-100); Mean Platelet Volume 9.3 fL (9.1-12.4); NEUTROPHILS ABSOLUTE AUTO 10.77 K/mm3 (1.96-9.15); NEUTROPHILS PERCENT AUTO 77 % (41-73); Platelet Count 336 K/mm3 (150-400); RDW Coefficient Variation 15.1 % (11.7-14.2); RDW Standard Deviation 44.1 fL (35.1-46.3); Red Blood Cell Count 5.12 M/mm3 (4.30-5.90); White Blood Cell Count 14.06 K/mm3 (4.00-11.30)
[2023-10-10 06:14] LABS: Bun/Creatinine Ratio 22.8 (12.0-20.0); Calcium, Blood 8.1 mg/dL (8.5-10.1); Creatinine, Blood 0.83 mg/dL (0.60-1.20); Potassium, Blood 3.7 mmol/L (3.5-5.5)
--- NOTE | 2023-10-10 06:20 | NUR ---
SHIFT SUMMARY NOC PT A/O X 3. FORGETFUL AT TIMES, BUT COOPERATIVE WITH CARE. VSS. NO ACUTE EVENTS TO REPORT. HS CBG 171 SCHEDULED 10 UNITS LONG ACTING INSULIN GIVEN. PT HAS NOT ATTEMPTED OOB UNSAFE DURING SHIFT AND HAS SLEPT FOR MAJORITY OF IT. ON CONTACT ISOLATION FOR BED BUGS. PT POTASSIUM 3.3 YESTERDAY WITH 40 MEQ PO GIVEN FOR REPLACEMENT. PT CURRENTLY RESTING WITH BED ALARM ON, BED IN LOWEST POSITION, AND CALL LIGHT WITHIN REACH.
[2023-10-10 07:49] VITALS: BP 86/69
[2023-10-10] MEDS ORDERED: Metoprolol Succinate 25 MG TABCR PO SCH (09:00)
[2023-10-10] MEDS ORDERED: Insulin Glargine-Yfgn 100 Unit/mL 3 ML SYR SC SCH (09:00)
[2023-10-10] MEDS ORDERED: NS 1,000 ML IV SCH (09:40)
[2023-10-10 15:59] VITALS: BP 102/64
--- NOTE | 2023-10-10 17:45 | NUR ---
SHIFT SUMMARY: PT IS A&OX3-4, PLEASANT AND COOPEARTIVE WITH CARE. HE WOKE UP THIS MORNING WITH A HEADACHE AND VOICES HE WASN'T FEELING WELL. HE ALSO VOICED THAT COULDN'T SWALLOW. DR. IBRAHIM NOTIFIED; SPEECH EVALUATION ORDERED AND COMPLETED. WAS ALBL TO DO MEDS WITH THE PATIENT THIS MORNING; ONE AT A TIME, TUCKED HIS CHIN, AND TOOK TIME FOR THE PILL TO GO DOWN PRIOR TO TAKING MORE. PATIENT FELT THAT THIS HELP. HE WOULD CLEAR HIS THROAT AND COUGH WHILE TAKING THINGS IN ORALLY; STATING "ITS GETTING STUCK" WHILE POINTING AT HIS THROAT. PALPATED PATIENT THROAT AND HAD HIM SWALLOW NO ABNORMALILTIES NOTED ON ASSESSMENT. SPEECH PUT HIM ON A MINCE MOISTED AND NECTAR THICK DIET WITH NO STRAWS. PATIENT DID NOT FEEL UP TO EATING HIS LUNCH AND HAS DECIDED TO SLEEP MOST OF THE AFTERNOON. HE IS IN BED, RESTING-RESP EVEN AND UNLABORED, CALL LIGHT WITHIN REACH, NO SIGNS OR SYMPTOMS OF DISTRESS, PLAN OF CARE ONGOING. HE WISHES TO RETURN TO [facility].
[2023-10-10 19:44] VITALS: BP 101/71
[2023-10-11 02:54] VITALS: BP 118/91
--- NOTE | 2023-10-11 04:44 | NUR ---
SHIFT SUMMARY SLEPT WELL, DID NOT TRY TO GET OUT OF BED. REMAINS IN CONTACT ISOLATION D/T BED BUGS WHERE HE CAME FROM.GIVEN PRN ZYPREXA AND TYLENOL FOR SLEEP.
[2023-10-11 07:33] VITALS: BP 116/73
[2023-10-11 09:18] LABS: BASOPHILS ABSOLUTE AUTO 0.04 K/mm3 (0.00-0.23); BASOPHILS PERCENT AUTO 0 % (0-2); EOSINOPHILS ABSOLUTE AUTO 0.08 K/mm3 (0.00-0.68); EOSINOPHILS PERCENT AUTO 1 % (0-6); Hematocrit 44.9 % (37.0-53.0); Hemoglobin 15.1 g/dL (13.5-17.5); IMMATURE GRAN ABSOLUTE AUTO 0.13 K/mm3 (0.00-0.10); IMMATURE GRAN PERCENT AUTO 1 % (0-1); LYMPHOCYTES ABSOLUTE AUTO 1.77 K/mm3 (0.84-5.20); LYMPHOCYTES PERCENT AUTO 15 % (21-46); MONOCYTES PERCENT AUTO 9 % (4-13); Mean Corpuscular HGB 27.9 pg (26.0-34.0); Mean Corpuscular HGB Conc 33.6 g/dL (31.5-36.5); Mean Corpuscular Volume 83 fL (80-100); Mean Platelet Volume 9.8 fL (9.1-12.4); NEUTROPHILS PERCENT AUTO 74 % (41-73); Platelet Count 292 K/mm3 (150-400); RDW Coefficient Variation 15.4 % (11.7-14.2); RDW Standard Deviation 46.5 fL (35.1-46.3); Red Blood Cell Count 5.42 M/mm3 (4.30-5.90); White Blood Cell Count 11.82 K/mm3 (4.00-11.30)
[2023-10-11 09:52] LABS: Albumin, Blood 1.9 g/dL (3.4-5.0); Albumin/Globulin Ratio 0.4 (0.8-1.8); Calcium, Blood 8.6 mg/dL (8.5-10.1); Creatinine, Blood 0.73 mg/dL (0.60-1.20); Globulin, Blood 4.8 g/dL (2.2-4.0); Magnesium, Blood 1.2 mg/dL (1.6-2.4); Potassium, Blood 3.6 mmol/L (3.5-5.5); Total Protein, Blood 6.7 g/dL (6.4-8.2)
[2023-10-11] MEDS ORDERED: Insulin Human Lispro 100 Units/ML 3ML Syringe SC ONE (12:05)
[2023-10-11] MEDS ORDERED: Magnesium Sulf 2 GM/Water 50ML 50 ML IV ONE (13:55)
[2023-10-11 15:14] VITALS: BP 125/80
[2023-10-11] MEDS ORDERED: Insulin Human Lispro 100 Units/ML 3ML Syringe SC SCH (16:30)
--- NOTE | 2023-10-11 18:17 | NUR ---
SHIFT SUMMARY: PATIENT HASN'T BEEN MOTIVATED TODAY TO WORK WITH THERAPY OR GET OUT OF BED. HE DID GET UP AND INTO THE BEDSIDE CHAIR FOR DINNER. HE HAD AN INCONTINENT BM; USING URINAL. EATING AND DRINKING; MAKES NEEDS KNOWN. HE IS GETTING IV ANTIBIOTIC TREATMENT FOR UTI; BLOOD SUGARS HIGH TODAY STARTED ON COVERAGE SHORT ACTING INSULIN. HE IS EATING DINNER, CALL LIGHT WITHIN REACH, CHAIR ALARM ON, NO SIGNS OR SYMPTOMS OF DISTRESS, PLAN OF CARE ONGOING. P.S. DAY THREE WITH PATIENT; HAVE YET TO VISUALIZE ANY BED BUGS OR BITES ON PATIENT.
[2023-10-11 19:45] VITALS: BP 122/73
[2023-10-11] MEDS ORDERED: Insulin Glargine-Yfgn 100 Unit/mL 3 ML SYR SC SCH (21:00)
--- NOTE | 2023-10-12 04:34 | NUR ---
SHIFT SUMMARY PATIENT SLEPT WELL, IV FLUIDS COMPLETED AND IV SL.REMAINS IN ISOLATION FOR BED BUG EXPOSURE. GAVE PRN TYLENOL FOR GENERAL DISCOMFORTS.
[2023-10-12 04:50] VITALS: BP 124/76
[2023-10-12 06:06] LABS: Hemoglobin 13.7 g/dL (13.5-17.5); Mean Corpuscular HGB 27.3 pg (26.0-34.0); Mean Corpuscular HGB Conc 34.3 g/dL (31.5-36.5); Mean Corpuscular Volume 80 fL (80-100); Mean Platelet Volume 9.2 fL (9.1-12.4); Platelet Count 303 K/mm3 (150-400); RDW Coefficient Variation 14.9 % (11.7-14.2); RDW Standard Deviation 43.1 fL (35.1-46.3); Red Blood Cell Count 5.02 M/mm3 (4.30-5.90); White Blood Cell Count 11.24 K/mm3 (4.00-11.30)
[2023-10-12 06:32] LABS: Bun/Creatinine Ratio 14.1 (12.0-20.0); Calcium, Blood 7.8 mg/dL (8.5-10.1); Creatinine, Blood 0.78 mg/dL (0.60-1.20); Potassium, Blood 3.2 mmol/L (3.5-5.5)
[2023-10-12 07:33] VITALS: BP 110/76
[2023-10-12 15:18] VITALS: BP 131/86
--- NOTE | 2023-10-12 17:32 | NUR ---
SUMMARY- PT A/O X3, USES CALL LIGHT. PT SAT UP IN THE CHAIR THROUGH LUNCH AND DINNER. TOLERATING FOOD AND FLUIDS WITH DYSPHAGIA DIET. BLOOD SUGARS 200-250, USING LONG ACTING GLARGENE IN THE AM AND SSI AC/HS. VSS, LUNGS CLEAR. +2 BLE EDEMA. WILL REPORT TO SALLY RILEY.
[2023-10-12] MEDS ORDERED: Potassium Chloride 20 MEQ TabCR PO ONE (18:40)
[2023-10-12 20:09] VITALS: BP 95/60
--- NOTE | 2023-10-13 05:07 | NUR ---
SHIFT SUMMARY PATIENT SLEPT WELL TONIGHT. REMAINS IN BED BUG ISOLATION.
[2023-10-13 05:52] LABS: Hematocrit 37.2 % (37.0-53.0); Mean Corpuscular HGB 27.5 pg (26.0-34.0); Mean Corpuscular HGB Conc 34.9 g/dL (31.5-36.5); Mean Corpuscular Volume 79 fL (80-100); Platelet Count 283 K/mm3 (150-400); RDW Coefficient Variation 14.6 % (11.7-14.2); RDW Standard Deviation 42.1 fL (35.1-46.3); Red Blood Cell Count 4.73 M/mm3 (4.30-5.90); White Blood Cell Count 12.41 K/mm3 (4.00-11.30)
[2023-10-13 06:06] VITALS: BP 116/81
[2023-10-13 06:23] LABS: Bun/Creatinine Ratio 10.6 (12.0-20.0); Calcium, Blood 7.3 mg/dL (8.5-10.1); Creatinine, Blood 0.76 mg/dL (0.60-1.20); Potassium, Blood 3.3 mmol/L (3.5-5.5)
[2023-10-13 07:36] VITALS: BP 117/78
[2023-10-13] MEDS ORDERED: Insulin Glargine-Yfgn 100 Unit/mL 3 ML SYR SC SCH ×2 (09:00→21:00)
[2023-10-13 15:08] VITALS: BP 122/78
--- NOTE | 2023-10-13 16:44 | NUR ---
SHIFT SUMMARY A&OX3, COOPERATIVE WITH CARE, PLEASANT. DENIED ANY CP/PRESSURE, HEADACHE, DIZZINESS, OR SOB. DENIED ANY PAIN T/O THE SHIFT. NO ACUTE CHANGES. USING A URINAL TO VOID. APPETITE AND HYDRATION FAIR. AWAITING MEDICAID FOR DC. CURRENTLY RESTING IN BED WATCHING TV. CALL LIGHT WITHIN REACH.
[2023-10-13 21:03] VITALS: BP 123/83
--- NOTE | 2023-10-13 23:00 | NUR ---
PRIMARY NURSE CAMERON SICK, THIS RN TO ASSUME CARE.
--- NOTE | 2023-10-14 04:08 | NUR ---
SHIFT SUMMARY. PATIENT IS A&OX3-4. PATIENT IS PLEASANT AND COOPERATIVE WITH CARE. PATIENT ABLE TO ASSIST WITH ROLLING FOR INCONTINENCE CHANGES. PATIENT DENIES PAIN. PATIENT RESTED T/O NIGHT WITH RESPIRATIONS EQUAL AND UNLABORED. NO S/S OF DISTRESS NOTED. BED IS LOCKED IN THE LOWEST POSITION WITH CALL LIGHT IN REACH. CARE IS ONGOING.
[2023-10-14 04:58] VITALS: BP 127/90
[2023-10-14 06:19] LABS: Hematocrit 38.5 % (37.0-53.0); Hemoglobin 13.1 g/dL (13.5-17.5); Mean Corpuscular HGB 27.1 pg (26.0-34.0); Mean Corpuscular Volume 80 fL (80-100); Platelet Count 299 K/mm3 (150-400); RDW Coefficient Variation 14.8 % (11.7-14.2); Red Blood Cell Count 4.84 M/mm3 (4.30-5.90)
[2023-10-14 06:33] LABS: Bun/Creatinine Ratio 9.8 (12.0-20.0); Calcium, Blood 7.9 mg/dL (8.5-10.1); Creatinine, Blood 0.72 mg/dL (0.60-1.20); Potassium, Blood 3.7 mmol/L (3.5-5.5)
[2023-10-14 07:40] VITALS: BP 120/83
[2023-10-14] MEDS ORDERED: Insulin Glargine-Yfgn 100 Unit/mL 3 ML SYR SC SCH (09:00)
[2023-10-14 15:51] VITALS: BP 102/64
--- NOTE | 2023-10-14 19:24 | NUR ---
SHIFT SUMMARY: PT IS A/O X 3, STANDBY ASSIST WITH GB/WALKER, PLEASANT AND [id number] WITH CARE. PT BLOOD SUGARS MANAGED WITH CURRENT INSULIN REGIMEN. PT EATING AND DRINKING FLUIDS WELL. NO C/O PAIN/NAUSEA. VITALS STABLE. PLAN TO DC BACK HOME TOMORROW. PER AIMEE HELMS TO COME IN FOR DIABETES INSULIN ADMINISTRATION EDUCATION.
[2023-10-14 19:53] VITALS: BP 110/79
--- NOTE | 2023-10-15 05:13 | NUR ---
SHIFT SUMMARY. NO ACUUTE CHANGES NOTED. PATIENT IS A&OX3. PATIENT IS PLEASANT AND COOPERATIVE WITH CARE. PATIENT TO DISCHARGE HOME TO [facility] TODAY WITH CAREGIVER/FRIEND SCOOTER. SCOOTER WILL NEED EDUCATION AND TEACHING ON INSULIN ADMINISTRATION WHEN SHE COMES IN. BED IS LOCKED IN LOWEST POSITION WITH CALL LIGHT IN REACH. CARE IS ONGOING.
[2023-10-15 06:25] LABS: BASOPHILS ABSOLUTE AUTO 0.04 K/mm3 (0.00-0.23); BASOPHILS PERCENT AUTO 0 % (0-2); EOSINOPHILS ABSOLUTE AUTO 0.09 K/mm3 (0.00-0.68); EOSINOPHILS PERCENT AUTO 1 % (0-6); Hematocrit 37.6 % (37.0-53.0); Hemoglobin 12.8 g/dL (13.5-17.5); IMMATURE GRAN ABSOLUTE AUTO 0.11 K/mm3 (0.00-0.10); IMMATURE GRAN PERCENT AUTO 1 % (0-1); LYMPHOCYTES ABSOLUTE AUTO 1.92 K/mm3 (0.84-5.20); LYMPHOCYTES PERCENT AUTO 20 % (21-46); MONOCYTES ABSOLUTE AUTO 1.04 K/mm3 (0.16-1.47); MONOCYTES PERCENT AUTO 11 % (4-13); Mean Corpuscular HGB 27.2 pg (26.0-34.0); Mean Corpuscular Volume 80 fL (80-100); Mean Platelet Volume 8.7 fL (9.1-12.4); NEUTROPHILS PERCENT AUTO 67 % (41-73); Platelet Count 297 K/mm3 (150-400); RDW Coefficient Variation 14.6 % (11.7-14.2); RDW Standard Deviation 43.2 fL (35.1-46.3)
[2023-10-15 06:30] VITALS: BP 132/91
[2023-10-15 06:58] LABS: Bun/Creatinine Ratio 9.6 (12.0-20.0); Calcium, Blood 7.8 mg/dL (8.5-10.1); Creatinine, Blood 0.73 mg/dL (0.60-1.20); Potassium, Blood 3.6 mmol/L (3.5-5.5)
[2023-10-15 08:05] VITALS: BP 122/79
[2023-10-15 15:26] VITALS: BP 102/68
[2023-10-15] MEDS ORDERED: METO25ER PO (15:57)
[2023-10-15] MEDS ORDERED: BASAGLAR K100 UNIT/1 SC ×2 (15:58→16:03)
--- NOTE | 2023-10-15 16:20 | NUR ---
SHIFT SUMMARY AND DISCHARGE PATIENT ALERT AND INTERACTIVE. PATIENT EAGER TO GO HOME. PATIENT REPEATEDLY ASKING WHEN HE IS GOING HOME. PATIENT INDEPENDENTLY AMBULATING IN ROOM. FRIEND SCOOTER CALLING REPEATEDLY ASKING ABOUT DISCHARGE. PATIENT DISCHARGED HOME. DISCHARGE INSTRUCTIONS REVIEWED WITH PATIENT. IV DC'D.
--- NOTE | 2023-10-15 20:00 | NUR ---
FRIEND, SCOOTER, REPEATEDLY CALLING REGARDING DISCHARGE INSTRUCTIONS AND WHAT MEDS HE NEEDED. REMINDED THAT PATIENT HAS HOME HEALTH TO FOLLOW HIM AND ASSIST WITH EDUCATION.
== END 2023-10-15 16:18 | disposition home health service (06) | DRG 871 ==
LOC: ER 12:10 → MEDS 12:18
PROVIDERS: Emergency Medicine; Hospitalist; ADMIT Internal Medicine
DX: A41.9 Sepsis, unspecified organism (principal); E11.10 Type 2 diabetes mellitus with ketoacidosis without coma; J18.9 Pneumonia, unspecified organism; N39.0 Urinary tract infection, site not specified; I48.20 Chronic atrial fibrillation, unspecified; G93.40 Encephalopathy, unspecified; E87.1 Hypo-osmolality and hyponatremia; R65.20 Severe sepsis without septic shock; E87.6 Hypokalemia; E86.0 Dehydration; Z66 Do not resuscitate; F03.90 Unspecified dementia, unspecified severity, without behavioral disturbance, psychotic disturbance, mood disturbance, and anxiety; Z86.73 Personal history of transient ischemic attack (TIA), and cerebral infarction without residual deficits; Z90.49 Acquired absence of other specified parts of digestive tract; Z90.89 Acquired absence of other organs; Z98.890 Other specified postprocedural states; Z79.01 Long term (current) use of anticoagulants; Z79.811 Long term (current) use of aromatase inhibitors; Z79.4 Long term (current) use of insulin; Z79.82 Long term (current) use of aspirin; Z79.899 Other long term (current) drug therapy; Z87.891 Personal history of nicotine dependence; Z91.148 Patient's other noncompliance with medication regimen for other reason; Z88.2 Allergy status to sulfonamides
CPT/HCPCS: 0241U; 36415; 71045; 80048; 80053; 80061; 80069; 81001; 81003; 82010; 82803; 82947; 83036; 83735; 84145; 84443; 85025; 85027; 87086; 87210; 92526; 92610; 93005; 93010; 96361; 96374; 97110; 97110-CQ; 97116; 97129; 97162; 97165; 97530; 97535; 99285-25; A9270; G0378; J0696; J1815; J3475; J7030; J7120